=== PATIENT | male | born 1990 | race Caucasian/White ===

== ENCOUNTER 2023-08-17 15:23 | Emergency (ER) | payer OTHER, SELFPAY ==
[2023-08-17 15:26] VITALS: BP 166/81; BMI 35.9
[2023-08-17 15:27] VITALS: BP 166/81
--- NOTE | 2023-08-17 15:27 | ED.GENMED ---
History of Present Illness
General
Chief Complaint: Weakness
Source: patient and ambulance crew
Exam Limitations: none
Time Seen by Provider: 08/17/23 15:26
History of Present Illness
History of Present Illness:
See MDM
Past History
Past History
ED Past Medical History: Psychiatric (Anxiety and depression.)
ED Past Surgical History: Other (Noncontributory)
Patient has exhibited threatening behavior?: No
PSI?: No
Social History
Tobacco: Non-smoker
Alcohol: Occasional
Drug: None
Personal: Single
Living: with family
Employment: Not employed
Family History
Family History: Other (Noncontributory)
Phy Exam
Physical Exam
Physical Exam:
See MDM
Course
Orders/Labs/Results
Orders:
Orders
08/17/23 15:26
EKG [Electrocardiogram (*1)] Urgent
Reason for Study: Fatigue / Weakness
EKG- Treatment ONCE
0.9% Sodium Chloride 1000 ml [Nss] 1,000 ml IV BOLUS
Morphine Sulfate 4 mg IV NOW STA
08/17/23 15:27
0.9% Sodium Chloride 1000 ml [Nss] 1,000 ml IV BOLUS
08/17/23 15:32
CBC/With Diff [Complete Blood Count/With Diff] Urgent
CMP [Comprehensive Metabolic Panel] Urgent
CPK [Creatine Phosphokinase] Urgent
Urinalysis Reflex To Culture Urgent
Date Specimen was Collected: 08/17/23
Time Specimen was Collected: 15:25
08/17/23 16:10
Ketorolac [Toradol] 30 mg IV NOW STA
08/17/23 16:44
CT Head W/o Iv Contrast Urgent
Comment:
Reason For Exam: Persistent headache
08/17/23 18:06
Butalb/Acetaminophen/Caffeine [Fioricet] 1 tab PO NOW STA
Abnormal Lab Results
08/17/23
15:32
Neutrophils % 76.5 H %
(42.2-75.2)
Lymphocytes % 18.8 L %
(20.5-51.1)
Glucose 136 H mg/dl
(70-99)
Creatine Kinase 412 H U/L
(55-170)
08/17/23 15:32
08/17/23 15:32
Vital Signs
Initial and Last Documented VS:
Initial Vital Signs
Temp Pulse Resp BP Pulse Ox
98 F 119 20 166/81 100
08/17/23 15:26 08/17/23 15:26 08/17/23 15:26 08/17/23 15:26 08/17/23 15:26
Last Documented Vital Signs
Temp Pulse Resp BP Pulse Ox
98 F 83 25 141/62 94
08/17/23 15:26 08/17/23 19:30 08/17/23 19:30 08/17/23 19:00 08/17/23 19:30
MDM/Problems Addressed
Differential Diagnosis Includes:
HPI and MDM Narrative:
33-year-old male presenting with generalized muscle aches and weakness. Patient has been unable to urinate over the past several days. Patient has been exercising more vigorously. Patient denies prior history of rhabdomyolysis.
On exam, patient has dry mucous membranes. He is somewhat uncomfortable. Abdomen soft and nontender. No leg edema
Physical exam
General: Mildly uncomfortable
HEENT: protecting airway. Dry mucous membranes
Neck: appears supple
CV: No evidence of cyanosis. Regular rate and rhythm
Resp: No accessory muscle use
Abd: Non-distended
Extremities: No deformities
Neuro: alert
Psych: Irritable
Skin: Intact
Problems Addressed including Acute and Chronic Conditions affecting care:
1. Dehydration
Acuity: acute
Prognosis: unstable
Details: Will start IV fluids
2. Myalgias
Acuity: acute
Prognosis: unstable
Details: Likely in the setting of rhabdomyolysis. IV fluids continued
Updates
Mild elevation of CPK. Patient feeling better after fluids. Patient still has a headache. CT head obtained which is negative. Patient given Fioricet which is helping. Discussed return
Differential Diagnosis (but not limited to): Rhabdomyolysis, myalgia, dehydration
Testing considered: Troponin
Drug therapy (if applicable): OTC meds, please see d/c instruction regarding Rx drugs
Amount and/or Complexity of Data Reviewed
Clinical info obtained from: Patient
External data reviewed: N/A
Labs I independently reviewed (but not limited to): Mild CPK elevation
Radiology: The CT scan was personally and independently reviewed. In addition, official CT report reviewed.
Pulse Ox: not hypoxic
EKG independently reviewed: N/A
Stained Glass Glazier Helper: N/A
Critical Care: N/A
Risk of Complication:
Social Determinants of health: Good social support
Discussed with other providers: N/A
Escalation of Care includes Admit/Obs: After being observed in the Emergency Department, pt stable for discharge.
Occasional wrong word or 'sound a like' substitutions may have occurred due to the inherent limitations of voice recognition software. Read the chart carefully and recognize, using context, where substitutions have occurred.
*Critical Care Note
Total Time (30-74mins, 75-104mins- exclusive of procedures): Not Applicable
ED Attending Note
-
Portions of this chart may have been created with voice recognition software.� Occasional wrong word or��sound alike� substitutions may have occurred due to the inherent limitations of voice recognition software.
Discharge Plan
Departure
Patient Disposition: Home (Routine Discharge)
Date of Disposition: 08/17/23
Time of Disposition: 19:44
Patient with high blood pressure during this ER visit?: Yes
Discharge Problem:
Acute dehydration, Migraine, Myalgia
Instructions: Migraines (DC), Rhabdomyolysis (DC), BLOOD PRESSURE
Prescriptions:
New
hewcphhgtg-ozkmvpohzssdf-wmrb [Fioricet] 50-300-40 mg capsule
1 cap PO Q8H PRN (Reason: Headache) Qty: 14 0RF
No Action
dextroamphetamine-amphetamine [Adderall] 10 mg Tablet
10 mg PO HS
Patient Comments:
at 1300
clonazepam 0.5 mg Tablet
0.5 mg PO BID
dextroamphetamine-amphetamine [Adderall XR] 20 mg Capsule,Extended Release 24hr
20 mg PO DAILY
paroxetine HCl [Paxil] 40 mg Tablet
40 mg PO DAILY
ziprasidone HCl [Geodon] 60 mg Capsule
60 mg PO HS
hydroxyzine HCl 25 MG tablet
50 mg PO TID PRN (Reason: anxiety)
lorazepam [Ativan] 1 mg tablet
1 mg PO BID PRN (Reason: anxiety) Qty: 7 0RF
lorazepam [Ativan] 0.5 mg tablet
0.5 mg PO DAILY PRN (Reason: anxiety) Qty: 10 0RF
Referrals:
Marilyn Chaney DO [Family Provider] -
Activity Restrictions/Additional Instructions:
Please return for any worsening symptoms.
You may return at any time if you have further concerns.
Please follow up with your doctor at the first available appointment, preferably this week.
Thank you for choosing [facility].
Interventions
Interventions:
*Risk Screen - Suicide Last Done: 08/17/23 15:27
*General Assessment Last Done: 08/17/23 15:27
ED- Fall Risk Assessment Last Done: 08/17/23 15:37
ED- Cardiac Assessment Last Done: 08/17/23 15:37
ED- Neurological Assessment Last Done: 08/17/23 15:37
ED- Pulmonary Assessment Last Done: 08/17/23 15:37
[2023-08-17] MEDS: NSS 1000 IV ×2 (15:30)
[2023-08-17] MEDS: MORPHINE SULFATE 4 MG IV (15:30)
[2023-08-17 15:42] LABS: % Basophils 0.3 % (0-2); % Eosinophils 0.1 % (0-6); % Immature Granulocytes 0.1 % (0-0.5); % Lymphocytes 18.8 % (20.5-51.1); % Monocytes 4.2 % (1.7-9.3); % Neutrophils 76.5 % (42.2-75.2); Absolute Lymphocytes 1.3 10^3/uL (1.2-3.4); Absolute Monocytes 0.3 10^3/uL (0.1-0.6); Absolute Neutrophils 5.3 10^3/uL (1.4-6.5); Hematocrit 42.3 % (39.0-52.0); Hemoglobin 15.1 g/dL (13.0-18.0); Mean Corp Hgb Conc. 35.7 g/dL (33.0-37.0); Mean Corpuscular Hgb 30.3 pg (27.0-31.0); Mean Corpuscular Volume 84.8 fL (80.0-94.0); Mean Platelet Volume 10.4 fL (7.4-10.4); Nucleated Red Blood Cells % 0 % (-); Platelet Count 187 10^3/uL (130-400); Red Blood Cell Count 4.99 10^6/uL (4.70-6.10); Red Cell Dist. Width 12.3 % (11.5-14.5)
[2023-08-17 15:55] LABS: ALT (SGPT) 35 U/L (0-50); AST (SGOT) 48 U/L (17-59); Albumin 4.8 g/dl (3.5-5.0); Alkaline Phosphatase 53 U/L (38-126); Blood Urea Nitrogen 18 mg/dl (9-20); Calcium 9.4 mg/dl (8.4-10.2); Carbon Dioxide 23 mmol/L (22-30); Chloride 103 mmol/L (98-107); Creatine Phosphokinase 412 U/L (55-170); Estimated Creatinine Clearance 93 ml/min; Glucose 136 mg/dl (70-99); Potassium 3.6 mmol/L (3.5-5.1); Sodium 136 mmol/L (135-145); Total Bilirubin 0.7 mg/dl (0.2-1.3); Total Protein 7.2 g/dl (6.3-8.2); eGFR > 60.00
[2023-08-17 16:00] VITALS: BP 152/72
[2023-08-17] MEDS: TORADOL 30 MG IV (16:14)
[2023-08-17 17:00] VITALS: BP 145/75
[2023-08-17 18:00] VITALS: BP 139/70
[2023-08-17 18:15] LABS: Urine Albumin Negative (Neg - Trace); Urine Bilirubin Negative (Negative); Urine Character Clear (Clear); Urine Color Yellow; Urine Glucose Negative (Negative); Urine Ketone Negative (Negative); Urine Leukocyte Negative (Negative); Urine Nitrite Negative (Negative); Urine Occult Blood Negative (Negative); Urine Specific Gravity 1.015 (<1.030); Urine Urobilinogen Negative (Neg - 1+)
[2023-08-17] MEDS: FIORICET 1 TAB PO (18:18)
[2023-08-17 19:00] VITALS: BP 141/62
== END 2023-08-17 20:15 | disposition home or self-care (01) ==
LOC: EMR 15:23
PROVIDERS: EMERGENCY PHYSICIAN Student in an Organized Health Care Education/Training Program; FAMILY PHYSICIAN Internal Medicine
DX: E86.0 Dehydration (principal); M79.10 Myalgia, unspecified site; G43.909 Migraine, unspecified, not intractable, without status migrainosus
CPT/HCPCS: 99284; 96374; 96375; 96361; 70450; 80053; 81003; 82550; 85025; 93005

== ENCOUNTER 2023-08-21 20:24 | Emergency (ER) | payer OTHER, SELFPAY ==
[2023-08-21 20:34] VITALS: BP 131/82
--- NOTE | 2023-08-21 21:34 | ED.GENMED ---
History of Present Illness
General
Chief Complaint: Male Genito-Urinary Symptoms
Time Seen by Provider: 08/21/23 20:32
Travel History
Have you had any contact with someone who has COVID-19?: No
Do you have any symptoms of coronavirus? Fever > 100 degrees, chills, cough, shortness of breath, sore throat, loss of taste or smell, muscle aches, or headache?: No
History of Present Illness
History of Present Illness:
33-year-old male with history of anxiety presents to the emergency department for evaluation of low back pain that occurred while exercising today. He was seen in this emergency department several days ago and found to have an elevated CPK on the
basis of excessive exertion, he is concerned that he overdid it again today. He currently feels well. Apparently was quite anxious and agitated for EMS and thus given IV midazolam and the patient now feels essentially resolved symptom soliz.
Denies any dark urine or abdominal pain.
Past History
Past History
ED Past Medical History: Psychiatric (Anxiety and depression.)
ED Past Surgical History: Other (Noncontributory)
Patient has exhibited threatening behavior?: No
PSI?: No
Social History
Tobacco: Non-smoker
Alcohol: Occasional
Drug: None
Personal: Single
Living: with family
Employment: Not employed
Family History
Family History: Other (Noncontributory)
Review of Systems
Review of Systems
Allergies reviewed?: Yes
All Other Systems: ROS reviewed and negative except as documented in HPI and ROS
Phy Exam
Physical Exam
Physical Exam:
GEN: Well appearing, NAD, WDWN
Eyes: PERRLA, EOMs intact, no scleral icterus
HENT: NCAT, oral mucosa moist
Lungs: CTAB, no wheezes, rales, rhonchi, normal chest wall excursion
Cardiac: RRR, no M/R/G, no peripheral edema. Radial pulses 2+ bilat
Abdomen: S, NT, ND, NABS, no masses or hepatosplenomegaly
Neuro: AO x 3
MSK: No gross deformity or ecchymosis. No edema. No digital clubbing
Skin: No rashes, petechiae. Normal color, no pallor or jaundice.
Psych: Calm, cooperative, proper hygiene
Course
Orders/Labs/Results
Orders:
Orders
08/21/23 21:39
Basic Metabolic Panel Urgent
CPK [Creatine Phosphokinase] Urgent
Complete Blood Count/No Diff Urgent
Urinalysis Reflex To Culture Urgent
Date Specimen was Collected: 08/21/23
Time Specimen was Collected: 21:37
Urine Microscopic Reflex Cult Urgent
Abnormal Lab Results
08/21/23
21:39
Sodium 134 L mmol/L
(135-145)
Creatine Kinase 336 H U/L
(55-170)
Leukocyte Esterase Rfl Trace A
(Negative)
Urine Bacteria (Reflex) Few A
(Negative)
08/21/23 21:39
08/21/23 21:39
Vital Signs
Initial and Last Documented VS:
Initial Vital Signs
Temp Pulse Resp BP Pulse Ox
97.9 F 82 18 131/82 100
08/21/23 20:34 08/21/23 20:34 08/21/23 20:34 08/21/23 20:34 08/21/23 20:34
Last Documented Vital Signs
Temp Pulse Resp BP Pulse Ox
97.9 F 78 32 123/65 97
08/21/23 20:34 08/21/23 22:00 08/21/23 22:00 08/21/23 22:00 08/21/23 22:00
MDM/Problems Addressed
MDM/Problems Addressed:
Patient's labs are reassuring, elevated CK is not at the criteria for rhabdo, patient did receive 1 L IV fluids prehospital that was continued in the ER. Patient is reassured that his labs are normal, encouraged avoidance of excessive exertion for
the next several days
*Critical Care Note
Total Time (30-74mins, 75-104mins- exclusive of procedures): Not Applicable
ED Attending Note
-
Portions of this chart may have been created with voice recognition software.� Occasional wrong word or��sound alike� substitutions may have occurred due to the inherent limitations of voice recognition software.
Discharge Plan
Departure
Patient Disposition: Home (Routine Discharge)
Date of Disposition: 08/21/23
Time of Disposition: 22:24
Patient with high blood pressure during this ER visit?: No
Discharge Problem:
Elevated CK, Low back pain
Instructions: Back Pain
Prescriptions:
No Action
dextroamphetamine-amphetamine [Adderall] 10 mg Tablet
10 mg PO HS
Patient Comments:
at 1300
clonazepam 0.5 mg Tablet
0.5 mg PO BID
dextroamphetamine-amphetamine [Adderall XR] 20 mg Capsule,Extended Release 24hr
20 mg PO DAILY
paroxetine HCl [Paxil] 40 mg Tablet
40 mg PO DAILY
ziprasidone HCl [Geodon] 60 mg Capsule
60 mg PO HS
hydroxyzine HCl 25 MG tablet
50 mg PO TID PRN (Reason: anxiety)
lorazepam [Ativan] 1 mg tablet
1 mg PO BID PRN (Reason: anxiety) Qty: 7 0RF
lorazepam [Ativan] 0.5 mg tablet
0.5 mg PO DAILY PRN (Reason: anxiety) Qty: 10 0RF
kfbcjnuvbd-ungdskcufpgza-tgov [Fioricet] 50-300-40 mg capsule
1 cap PO Q8H PRN (Reason: Headache) Qty: 14 0RF
Referrals:
UNKNOWN - PT NOT,INTERVIEWE [Unknown Provider] -
Activity Restrictions/Additional Instructions:
No exertion for 3-5 days
Interventions
Interventions:
*Risk Screen - Suicide Last Done: 08/21/23 20:34
*General Assessment Last Done: 08/21/23 20:34
*Neglect/Abuse Screening Last Done: 08/21/23 20:34
ED- Fall Risk Assessment Last Done: 08/21/23 22:41
*ED COVID-19 Vaccine History Last Done: 08/21/23 22:41
*Nursing Disposition Last Done: 08/21/23 22:41
ED-Male Genitourinary Assessment Last Done: 08/21/23 20:34
Discharge Date and Time
Discharge Date/Time: 08/21/23 23:14
[2023-08-21 21:51] LABS: Hematocrit 40.1 % (39.0-52.0); Hemoglobin 14.8 g/dL (13.0-18.0); Mean Corp Hgb Conc. 36.9 g/dL (33.0-37.0); Mean Corpuscular Volume 81.2 fL (80.0-94.0); Mean Platelet Volume 10.1 fL (7.4-10.4); Platelet Count 185 10^3/uL (130-400); Red Blood Cell Count 4.94 10^6/uL (4.70-6.10); Red Cell Dist. Width 12.3 % (11.5-14.5); White Blood Cell Count 9.7 10^3/uL (4.8-10.8)
[2023-08-21 21:52] LABS: Urine Albumin Negative (Neg - Trace); Urine Bilirubin Negative (Negative); Urine Character Clear (Clear); Urine Color Straw; Urine Glucose Negative (Negative); Urine Ketone Negative (Negative); Urine Leukocyte Trace (Negative); Urine Nitrite Negative (Negative); Urine Occult Blood Negative (Negative); Urine Specific Gravity 1.005 (<1.030); Urine Urobilinogen Negative (Neg - 1+)
[2023-08-21 21:57] VITALS: BMI 32.0
[2023-08-21 21:58] LABS: Urine Bacteria Few (Negative); Urine Red Blood Cell 0-2 /HPF (0-2); Urine White Cell 0-2 /HPF (0-5)
[2023-08-21 22:00] VITALS: BP 123/65
[2023-08-21 22:13] LABS: Blood Urea Nitrogen 16 mg/dl (9-20); Calcium 9.7 mg/dl (8.4-10.2); Carbon Dioxide 30 mmol/L (22-30); Chloride 100 mmol/L (98-107); Creatine Phosphokinase 336 U/L (55-170); Estimated Creatinine Clearance 88 ml/min; Glucose 92 mg/dl (70-99); Sodium 134 mmol/L (135-145); eGFR > 60.00
== END 2023-08-21 23:14 | disposition home or self-care (01) ==
LOC: EMR 20:24
PROVIDERS: Physician Assistant; EMERGENCY PHYSICIAN Emergency Medicine; FAMILY PHYSICIAN Internal Medicine
DX: M54.50 Low back pain, unspecified (principal); R74.8 Abnormal levels of other serum enzymes; F41.9 Anxiety disorder, unspecified
CPT/HCPCS: 99283; 80048; 81003; 81015; 82550; 85027

== ENCOUNTER 2023-08-24 15:24 | Emergency (ER) | payer OTHER, SELFPAY ==
[2023-08-24 15:26] VITALS: BP 122/73
[2023-08-24 15:51] LABS: % Basophils 0.3 % (0-2); % Immature Granulocytes 0.4 % (0-0.5); % Lymphocytes 20.1 % (20.5-51.1); % Monocytes 4.4 % (1.7-9.3); % Neutrophils 74.8 % (42.2-75.2); Absolute Lymphocytes 1.4 10^3/uL (1.2-3.4); Absolute Monocytes 0.3 10^3/uL (0.1-0.6); Absolute Neutrophils 5.1 10^3/uL (1.4-6.5); Hemoglobin 15.7 g/dL (13.0-18.0); Mean Corp Hgb Conc. 35.7 g/dL (33.0-37.0); Mean Corpuscular Hgb 30.1 pg (27.0-31.0); Mean Corpuscular Volume 84.5 fL (80.0-94.0); Mean Platelet Volume 10.1 fL (7.4-10.4); Nucleated Red Blood Cells % 0 % (-); Platelet Count 208 10^3/uL (130-400); Red Blood Cell Count 5.21 10^6/uL (4.70-6.10); Red Cell Dist. Width 12.4 % (11.5-14.5); White Blood Cell Count 6.9 10^3/uL (4.8-10.8)
[2023-08-24 16:05] LABS: ALT (SGPT) 37 U/L (0-50); AST (SGOT) 40 U/L (17-59); Albumin 5.2 g/dl (3.5-5.0); Alkaline Phosphatase 48 U/L (38-126); Blood Urea Nitrogen 15 mg/dl (9-20); Calcium 10.1 mg/dl (8.4-10.2); Carbon Dioxide 29 mmol/L (22-30); Chloride 99 mmol/L (98-107); Creatine Phosphokinase 171 U/L (55-170); Glucose 107 mg/dl (70-99); Potassium 4.3 mmol/L (3.5-5.1); Sodium 135 mmol/L (135-145); Total Bilirubin 0.6 mg/dl (0.2-1.3); Total Protein 7.8 g/dl (6.3-8.2); eGFR > 60.00
--- NOTE | 2023-08-24 16:42 | ED.GENMED ---
History of Present Illness
General
Chief Complaint: Musculo-Skeletal Complaint
Source: patient
Exam Limitations: none
Time Seen by Provider: 08/24/23 16:08
Nursing documentation reviewed up to this point in time: agreed with
Travel History
Have you had any contact with someone who has COVID-19?: No
Do you have any symptoms of coronavirus? Fever > 100 degrees, chills, cough, shortness of breath, sore throat, loss of taste or smell, muscle aches, or headache?: No
History of Present Illness
History of Present Illness:
This is a 33 y/o male with a PMH of anxiety, depression, ADHD, who presents to the ER today with concerns of anxiety and a sensation of feeling 'off' for the past 2 weeks. Patient states that he has a hx of anxiety and was struggling with panic
attacks recently when today he had a panic attack today that became so severe and uncomfortable that he had to call EMS. He reports that he was experiencing shortness of breath and palpitations which is typical with his panic attacks, along with a
sense of impending doom and increasing anxiety. Patient also states that he was having an out of body experience which is not typical of his panic attacks. Patient states that when he arrived to the ER, his panic attack resolved on its own. Patient
states that he did not receive any medications via EMS. Patient tried taking his hydroxyzine at home which did not help. Patient states that physical exercise significantly improves his anxiety but he has stopped completely due to concerns of weight
training induced rhabdomyolysis. Of note, patient recently stopped his Abilify due to high cholesterol. Patient still has some anxiety currently but denies chest pain, panic symptoms, shortness of breath, palpitations, fevers or chills, visual
changes, epigastric pain, syncopal episodes. Patient also admits to burning with urination. He denies flank pain, hematuria, chance of STDs/STIs. Denies penial drainage/swelling/pain/trauma.
Past History
Past History
ED Past Medical History: Psychiatric (Anxiety and depression.)
ED Past Surgical History: Other (Noncontributory)
Patient has exhibited threatening behavior?: No
PSI?: No
Social History
Tobacco: Non-smoker
Alcohol: Occasional
Drug: None
Personal: Single
Living: with family
Employment: Not employed
Family History
Family History: Other (Noncontributory)
Review of Systems
Review of Systems
All Other Systems: ROS reviewed and negative except as documented in HPI and ROS
Phy Exam
Physical Exam
Physical Exam:
Vitals: vital signs are stable
General: patient is well appearing and in no acute distress
Skin: warm and dry, no rashes or lesions
Cardiac: regular rate and rhythm, no murmurs
Pulm: normal respiratory effort, lung sounds equal on both sides, no wheezes, rales, or rhonchi
Abdomen: No tenderness to palpation, to CVA tenderness
Neuro: AAOx3, CN II-XII intaxt.
Psychiatric: anxious affect. speech normal. good eye contact. no suicidal/homicidal thoughts.
Course
Orders/Labs/Results
Orders:
Orders
08/24/23 15:42
Complete Blood Count/With Diff Urgent
Comprehensive Metabolic Panel Urgent
Creatine Phosphokinase Urgent
08/24/23 16:39
Urinalysis Reflex To Culture Urgent
Date Specimen was Collected: 08/24/23
Time Specimen was Collected: 16:38
Abnormal Lab Results
08/24/23
15:42
Lymphocytes % 20.1 L %
(20.5-51.1)
Glucose 107 H mg/dl
(70-99)
Creatine Kinase 171 H D U/L
(55-170)
Albumin 5.2 H g/dl
(3.5-5.0)
08/24/23 15:42
08/24/23 15:42
Vital Signs
Initial and Last Documented VS:
Initial Vital Signs
Temp Pulse Resp BP Pulse Ox
97.4 F 86 18 122/73 100
08/24/23 15:26 08/24/23 15:26 08/24/23 15:26 08/24/23 15:26 08/24/23 15:26
Last Documented Vital Signs
Temp Pulse Resp BP Pulse Ox
97.4 F 86 18 122/73 100
08/24/23 15:26 08/24/23 15:26 08/24/23 15:26 08/24/23 15:26 08/24/23 15:26
MDM/Problems Addressed
Differential Diagnosis Includes:
ddx include panic attack, panic disorder, generalized anxiety disorder, Abilify discontinuation syndrome, marijuana use, caffeine use,
MDM/Problems Addressed:
anxiety
dysuria
Chronic conditions affecting care: Psychiatric illness
Acute Exacerbation and/or Progression of Chronic Illness: Psychiatric illness
*Pulse Oximetry
Patient hypoxic: no
*Critical Care Note
Total Time (30-74mins, 75-104mins- exclusive of procedures): Not Applicable
Data Reviewed
Review of Other/Old Records Reveals: Records (reviewed ER physician documentation from 08/21/23, 08/17/23, 06/01/23, 01/09/23, 03/17/22--patient has various visits for same complaint) and Discharge Summary (no recent hospitalizations)
Source: patient and records
Prescriptions/Medications Considered But Not Given:
considered short course of benzothiazepines however patient's panic attack has resolved, patient follows with a psychiatrist who he last saw 2 weeks ago, patient previously on chronic benzos, and patient has follow up with therapist tomorrow
Further Testing Considered But Not Given:
considered EKG however patient has no chest pain and on exam has regular rate and rhythm, no murmurs
Patient Management
Social determinants of health affecting care: Strong social support
Discussion with other providers: Other (reviewed case with Dr. Alan ER attending)
Escalation/DeEscalation of care consider admission/obs:
anxiety: 33 y/o male with hx of anxiety, ADHD, depression presenting today following a panic attack. patient tried home hydroxyzine which did not help, got so bad that he had to call EMS. panic attack resolved upon presentation to the ER. Patient
concerned about possible rhabdo diagnosis. Patient was seen on 08/17/2023 here for elevated CPK following exertional exercise, patient was rehydrated and sent home, not true rhabdo diagnosis, no kidney injury at the time. Patient today has mildly
elevated CPK which is significantly reduced from previous levels, no kidney injury today. Patient states that his daily exercise is his primary form of anxiety relief. I suspect patient's recent increase in panic attacks is a result of his decrease
in exercise as well as abrupt discontinuation of abilify. Patient does have therapy appointment scheduled for tomorrow. I advised patient tomorrow to call his psychiatric provider for an appointment for possible medication adjustment. We discussed
coping mechanisms. Discussed that it is okay to return to light exercise and to return to full exercise gradually over the coming weeks. Patient requesting home course of benzos, considered possibility however patient has had issues with benzo
dependence with his anxiety in the past. Patient stable for discharge.
urinary symptoms: patient also complains of mild dysuria, patient has no flank pain, no abdominal pain, no fevers or chills. Urinalysis negative for infection. Advised patient to follow up with his pcp should his symptoms worsen
ED Attending Note
-
Portions of this chart may have been created with voice recognition software.� Occasional wrong word or��sound alike� substitutions may have occurred due to the inherent limitations of voice recognition software.
Discharge Plan
Departure
Patient Disposition: Home (Routine Discharge)
Date of Disposition: 08/24/23
Time of Disposition: 18:12
Patient with high blood pressure during this ER visit?: Yes
Condition: Good
Discharge Problem:
Anxiety
Instructions: Anxiety, Adult (DC)
Prescriptions:
No Action
dextroamphetamine-amphetamine [Adderall] 10 mg Tablet
10 mg PO HS
Patient Comments:
at 1300
clonazepam 0.5 mg Tablet
0.5 mg PO BID
dextroamphetamine-amphetamine [Adderall XR] 20 mg Capsule,Extended Release 24hr
20 mg PO DAILY
paroxetine HCl [Paxil] 40 mg Tablet
40 mg PO DAILY
ziprasidone HCl [Geodon] 60 mg Capsule
60 mg PO HS
hydroxyzine HCl 25 MG tablet
50 mg PO TID PRN (Reason: anxiety)
lorazepam [Ativan] 1 mg tablet
1 mg PO BID PRN (Reason: anxiety) Qty: 7 0RF
lorazepam [Ativan] 0.5 mg tablet
0.5 mg PO DAILY PRN (Reason: anxiety) Qty: 10 0RF
xwiasstwac-iogdphfstxbhw-nxck [Fioricet] 50-300-40 mg capsule
1 cap PO Q8H PRN (Reason: Headache) Qty: 14 0RF
Referrals:
Marilyn Chaney DO [Family Provider] -
Activity Restrictions/Additional Instructions:
Please follow up with your psychiatrist. Please call the office tomorrow to make an appointment for follow up.
Please follow up with your primary care provider.
Interventions
Interventions:
*Risk Screen - Suicide Last Done: 08/24/23 15:26
*General Assessment Last Done: 08/24/23 15:26
*Neglect/Abuse Screening Last Done: 08/24/23 15:26
ED- Fall Risk Assessment Last Done: 08/24/23 18:28
*ED COVID-19 Vaccine History Last Done: 08/24/23 18:28
*Nursing Disposition Last Done: 08/24/23 18:28
ED-Musculoskeletal Assessment Last Done: 08/24/23 18:28
Discharge Date and Time
Discharge Date/Time: 08/24/23 18:28
[2023-08-24 16:48] LABS: Urine Albumin Negative (Neg - Trace); Urine Bilirubin Negative (Negative); Urine Character Clear (Clear); Urine Color Straw; Urine Glucose Negative (Negative); Urine Ketone Negative (Negative); Urine Leukocyte Negative (Negative); Urine Nitrite Negative (Negative); Urine Occult Blood Negative (Negative); Urine Urobilinogen Negative (Neg - 1+)
== END 2023-08-24 18:28 | disposition home or self-care (01) ==
LOC: EMR 15:24
PROVIDERS: Physician Assistant; EMERGENCY PHYSICIAN Emergency Medicine; FAMILY PHYSICIAN Internal Medicine
DX: F41.9 Anxiety disorder, unspecified (principal); F32.A Depression, unspecified; E78.00 Pure hypercholesterolemia, unspecified; F90.9 Attention-deficit hyperactivity disorder, unspecified type
CPT/HCPCS: 99283; 80053; 81003; 82550; 85025

== ENCOUNTER 2023-08-26 15:13 | Emergency (ER) | payer OTHER, SELFPAY ==
[2023-08-26 15:14] VITALS: BP 174/83
--- NOTE | 2023-08-26 15:25 | ED TECH ---
pt arrived to triage with amblance crew and police aide. Pt hunched over on stretcher, yelled at nursing at ems stating he was in pain and the was 'bullshit' in triage. Pt ambulated with steady gait to triage BR where pt successfully urinated for
close to a minute straight with a steady stream. Nurse and PCT at pt side where he was triaged and put into WR, stating 'this is bullshit, im in pain and now you want to give me COVID.' Security made aware while pt is waiting in WR.
--- NOTE | 2023-08-26 16:48 | ED.GENMED ---
History of Present Illness
General
Chief Complaint: Male Genito-Urinary Symptoms
Source: patient
Time Seen by Provider: 08/26/23 15:59
Travel History
Have you had any contact with someone who has COVID-19?: No
Do you have any symptoms of coronavirus? Fever > 100 degrees, chills, cough, shortness of breath, sore throat, loss of taste or smell, muscle aches, or headache?: No
History of Present Illness
History of Present Illness:
33-year-old male with severe anxiety. States that he started to develop severe anxiety just prior to presentation and called EMS. He says that 'on the way here', he was unable to urinate. However, since arrival, he just urinated and feels that he
empties his bladder fully. He describes anxiety of feeling like he was 'losing my mind', associated with crying and diffuse body pain, typical of an anxiety attack for him. He declines to see crisis here, and denies SI or HI. He just saw his
therapist yesterday and has an appoint with a psychiatrist tomorrow to restart/reinitiate Abilify which he thinks will help him. He denies chest pain, shortness of breath, abdominal pain, nausea, vomiting, headache, dizziness, fever, chills, or
other complaints.
Past History
Past History
ED Past Medical History: Psychiatric (Anxiety and depression.)
ED Past Surgical History: Other (Noncontributory)
Patient has exhibited threatening behavior?: No
PSI?: No
Social History
Tobacco: Non-smoker
Alcohol: Occasional
Drug: None
Personal: Single
Living: with family
Employment: Not employed
Family History
Family History: Other (Noncontributory)
Phy Exam
Physical Exam
Physical Exam:
GENERAL: Alert , in no apparent distress
EYE: pupils equal and reactive
NECK: Supple, no significant adenopathy.
ENT: o/p clr, mmm.
CARDIAC: Regular rate and rhythm .
LUNGS: Clear breath sounds bilaterally, no acute respiratory distress, no wheezes/rales/rhonchi
ABDOMEN: Soft, without focal tenderness, no r/g, no cvat
NEUROLOGICAL: Alert and oriented, no focal neuro deficits
SKIN: Warm and dry, skin intact.
MUSCULOSKELETAL: No edema, well perfused.
PSYCH: Pleasant, cooperative, obviously anxious, denies SI or HI
Course
Orders/Labs/Results
Orders:
Orders
08/26/23 16:47
Bladder Scan- Treatment ONCE
Vital Signs
Initial and Last Documented VS:
Initial Vital Signs
Temp Pulse Resp BP Pulse Ox
98.6 F 112 24 174/83 99
08/26/23 15:14 08/26/23 15:14 08/26/23 15:14 08/26/23 15:14 08/26/23 15:14
Last Documented Vital Signs
Temp Pulse Resp BP Pulse Ox
98.6 F 112 24 174/83 99
08/26/23 15:14 08/26/23 15:14 08/26/23 15:14 08/26/23 15:14 08/26/23 15:14
*Critical Care Note
Total Time (30-74mins, 75-104mins- exclusive of procedures): Not Applicable
Update Note
Update Note:
Patient presents to the Emergency Department with urinary retention and anxiety
Number and Complexity of Problems Addressed at the Encounter
� Chronic conditions affecting care:
� Acute Exacerbation and/or Progression of Chronic Illness:
� Differential Diagnosis includes: But not limited to medication effect, UTI, etc.
Amount and/or Complexity of Data to be Reviewed and Analyzed
� I performed an independent evaluation of and my interpretation is:
EKG:
CT:
Xrays:
Laboratory Studies:
Other:
� Review of other/old records reveals:
� Clinical information was obtained by an independent historian:
� Prescriptions/Medications Considered but not given:
� Further testing considered but not performed:
Risk of Complications and/or Morbidity or Mortality of Patient Management
� Social determinants of health affecting care:
� Discussion with other providers (PCP, Hospitalists, Consultants, etc):
� Escalation of care including admission/observation vs risk of discharge considered: Patient is clinically stable. We will do bladder scan to make sure he is not retaining. He has an appointment tomorrow to restart his Abilify
with his psychiatrist. He denies SI or HI and declines crisis services here. He contracts for safety. He is requesting a prescription for a rescue medication for anxiety such as Ativan. I will write him for just a few tablets.
ED Attending Note
-
Portions of this chart may have been created with voice recognition software.� Occasional wrong word or��sound alike� substitutions may have occurred due to the inherent limitations of voice recognition software.
Discharge Plan
Departure
Patient Disposition: Home (Routine Discharge)
Date of Disposition: 08/26/23
Time of Disposition: 16:51
Patient with high blood pressure during this ER visit?: Yes
Condition: Good
Discharge Problem:
Anxiety
Instructions: Anxiety, Adult (DC), BLOOD PRESSURE
Prescriptions:
New
lorazepam [Ativan] 0.5 mg tablet
0.5 mg PO BID PRN (Reason: anxiety) Qty: 3 0RF
No Action
dextroamphetamine-amphetamine [Adderall] 10 mg Tablet
10 mg PO HS
Patient Comments:
at 1300
clonazepam 0.5 mg Tablet
0.5 mg PO BID
dextroamphetamine-amphetamine [Adderall XR] 20 mg Capsule,Extended Release 24hr
20 mg PO DAILY
paroxetine HCl [Paxil] 40 mg Tablet
40 mg PO DAILY
ziprasidone HCl [Geodon] 60 mg Capsule
60 mg PO HS
hydroxyzine HCl 25 MG tablet
50 mg PO TID PRN (Reason: anxiety)
lorazepam [Ativan] 1 mg tablet
1 mg PO BID PRN (Reason: anxiety) Qty: 7 0RF
lorazepam [Ativan] 0.5 mg tablet
0.5 mg PO DAILY PRN (Reason: anxiety) Qty: 10 0RF
xgqgqpuvbn-mrxlxlytxxasu-rhvb [Fioricet] 50-300-40 mg capsule
1 cap PO Q8H PRN (Reason: Headache) Qty: 14 0RF
Activity Restrictions/Additional Instructions:
PLEASE SEE YOUR PSYCHIATRIST SCHEDULED TOMORROW. IF YOU DEVELOP THOUGHTS OF WANTING TO HURT YOURSELF OR OTHERS, FEVER, VOMITING, DIZZINESS, DIFFICULTY URINATING, OR OTHER WORRISOME SIGNS, GO TO THE ER IMMEDIATELY!
Interventions
Interventions:
*Risk Screen - Suicide Last Done: 08/26/23 15:14
*General Assessment Last Done: 08/26/23 15:14
*Neglect/Abuse Screening Last Done: 08/26/23 15:14
ED- Fall Risk Assessment Last Done: 08/26/23 15:46
*ED COVID-19 Vaccine History Last Done: 08/26/23 15:14
*Nursing Disposition Last Done: 08/26/23 17:00
ED-Male Genitourinary Assessment Last Done: 08/26/23 15:46
Discharge Date and Time
Discharge Date/Time: 08/26/23 17:07
== END 2023-08-26 17:07 | disposition home or self-care (01) ==
LOC: EMR 15:13
PROVIDERS: EMERGENCY PHYSICIAN Emergency Medicine; FAMILY PHYSICIAN Internal Medicine
DX: F41.9 Anxiety disorder, unspecified (principal); F32.A Depression, unspecified
CPT/HCPCS: 99282

== ENCOUNTER 2023-09-10 11:29 | Emergency (ER) | payer OTHER, SELFPAY ==
[2023-09-10 11:31] VITALS: BP 140/77
[2023-09-10 13:46] LABS: % Basophils 0.3 % (0-2); % Immature Granulocytes 0.1 % (0-0.5); % Lymphocytes 16.8 % (20.5-51.1); % Monocytes 3.7 % (1.7-9.3); % Neutrophils 79.1 % (42.2-75.2); Absolute Lymphocytes 1.2 10^3/uL (1.2-3.4); Absolute Monocytes 0.3 10^3/uL (0.1-0.6); Absolute Neutrophils 5.4 10^3/uL (1.4-6.5); Hematocrit 40.4 % (39.0-52.0); Hemoglobin 14.6 g/dL (13.0-18.0); Mean Corp Hgb Conc. 36.1 g/dL (33.0-37.0); Mean Corpuscular Hgb 29.6 pg (27.0-31.0); Mean Corpuscular Volume 81.8 fL (80.0-94.0); Mean Platelet Volume 9.9 fL (7.4-10.4); Nucleated Red Blood Cells % 0 % (-); Platelet Count 201 10^3/uL (130-400); Red Blood Cell Count 4.94 10^6/uL (4.70-6.10); Red Cell Dist. Width 12.5 % (11.5-14.5); White Blood Cell Count 6.8 10^3/uL (4.8-10.8)
[2023-09-10] MEDS: ATIVAN 1 MG IV (13:46)
--- NOTE | 2023-09-10 13:51 | ED.GENMED ---
History of Present Illness
General
Chief Complaint: Anxiety
Source: patient
Exam Limitations: none
Time Seen by Provider: 09/10/23 12:40
Nursing documentation reviewed up to this point in time: agreed with
Travel History
Have you had any contact with someone who has COVID-19?: No
Do you have any symptoms of coronavirus? Fever > 100 degrees, chills, cough, shortness of breath, sore throat, loss of taste or smell, muscle aches, or headache?: No
History of Present Illness
History of Present Illness:
The patient is a 33-year-old man who reports that he has a history of anxiety and depression. He reports that lately over the last 3 weeks, his anxiety has gotten out of control and he is having multiple panic attacks. Patient reports he is
currently having a panic attack. He describes chest pain and shortness of breath. He denies any specific social stressors. He reports that he has been in touch with [facility] about being placed in a partial program, however, they have not yet
gotten back to him. He is requesting benzos. He reports he has taken Klonopin in the past but has not been on Klonopin in years. He currently is on for Abilify, Geodon, Paxil and Adderall. He denies drugs and alcohol use. Denies suicidal and
homicidal thoughts. He reports he feels safe living at home with his parents.
Past History
Past History
ED Past Medical History: Psychiatric (Anxiety and depression.)
ED Past Surgical History: Other (Noncontributory)
Patient has exhibited threatening behavior?: No
PSI?: No
Social History
Tobacco: Non-smoker
Alcohol: Occasional
Drug: None
Personal: Single
Living: with family
Employment: Not employed
Family History
Family History: Other (Noncontributory)
Review of Systems
Review of Systems
Allergies reviewed?: Yes
All Other Systems: ROS reviewed and negative except as documented in HPI and ROS
Constitutional: Reports no symptoms
EENT: Reports no symptoms
Respiratory: Reports no symptoms
Cardiac: Reports chest pain
ABD/GI: Reports no symptoms
: Reports no symptoms
Musculoskeletal: Reports no symptoms
Skin: Reports no symptoms
Neurological: Reports no symptoms
Endocrine: Reports no symptoms
Hematologic/Lymphatic: Reports no symptoms
Psychiatric: Reports depression and anxiety
Phy Exam
Physical Exam
Physical Exam:
Physical Exam
General: Patient is hyperventilating but conversational
Neck: supple. no meningeal signs. normal psoterior pharynx
Heart: s1/s2 regular rate and rhythm, no murmur. equal radial pulses.
Lungs: no acute respiratory distress. clear bilaterally
Abdomen: normal bowel sounds. not tender. no CVAT
Neuro: alert and oriented. no focal neurological deficits
Skin: no rash
Psychiatric: well kept. interactive and cooperative
Extremities: no edema. no calf tenderness. negative homans. good distal pulses
Course
Orders/Labs/Results
Orders:
Orders
09/10/23 13:23
Lorazepam [Ativan] 1 mg IV NOW STA
09/10/23 13:24
Electrocardiogram (*1) Urgent
Reason for Study: Chest Pain
EKG- Treatment ONCE
09/10/23 13:30
Crisis Consult Urgent
Reason for Consult: acute on chronic anxiety and depression
09/10/23 13:32
Complete Blood Count/With Diff Urgent
Comprehensive Metabolic Panel Urgent
Troponin I Urgent
Abnormal Lab Results
09/10/23
13:32
Neutrophils % 79.1 H %
(42.2-75.2)
Lymphocytes % 16.8 L %
(20.5-51.1)
Glucose 106 H mg/dl
(70-99)
09/10/23 13:32
09/10/23 13:32
Vital Signs
Initial and Last Documented VS:
Initial Vital Signs
Temp Pulse Resp BP Pulse Ox
98.3 F 97 16 140/77 98
09/10/23 11:31 09/10/23 11:31 09/10/23 11:31 09/10/23 11:31 09/10/23 11:31
Last Documented Vital Signs
Temp Pulse Resp BP Pulse Ox
98.3 F 97 16 140/77 98
09/10/23 11:31 09/10/23 11:31 09/10/23 11:31 09/10/23 11:31 09/10/23 11:31
MDM/Problems Addressed
Differential Diagnosis Includes:
Acute on chronic anxiety, acute coronary syndrome, PE
MDM/Problems Addressed:
Patient presents with acute panic attack
Chronic conditions affecting care:
Anxiety, depression
Acute Exacerbation and/or Progression of Chronic Illness:
Patient likely has acute exacerbation of his chronic depression and anxiety
*Pulse Oximetry
Patient hypoxic: no
*EKG
Interpreted by ED Provider?: Yes
Interpretation: abnormal
Comparison EKG: no changes
Rate: normal
Rhythm: sinus
[place]: normal axis
Interval: normal interval
QRS Pattern: normal QRS
Ischemia: non-specific ST changes
*[employer] Interpretation
Rate: normal
Interpretation: normal
Rhythm: sinus
*Critical Care Note
Total Time (30-74mins, 75-104mins- exclusive of procedures): Not Applicable
Data Reviewed
Source: patient
Patient Management
Social determinants of health affecting care: Living situation and Strong social support
Discussion with other providers: Other (I spoke to [facility] crisis workers who reports that they offered their assistance to him and he told them that he is not interested in speaking to them)
Escalation/DeEscalation of care consider admission/obs:
Patient remains calm and cooperative with me. He assures me he will follow-up with his psychiatrist. Patient was not interested in speaking to [facility] crisis in the ED and reports that ' they never help him'. Patient adamantly denies suicidal and
homicidal thoughts.
His EKG appears nonischemic and he appears well and comfortable. Doubtful he is acute coronary syndrome. He has no pleuritic chest pain or shortness of breath to suggest PE. Clinically he has no pneumonia.
Update Note
Update Note:
I spoke personally to the plugger worker who reports that the patient was not interested in speaking to [facility] crisis at this time. Patient remains nonsuicidal not homicidal. He is calm and cooperative. Patient encouraged to follow-up with his own
psychiatrist. Patient is not interested in inpatient management, as I asked him.
ED Attending Note
-
Portions of this chart may have been created with voice recognition software.� Occasional wrong word or��sound alike� substitutions may have occurred due to the inherent limitations of voice recognition software.
Discharge Plan
Departure
Patient Disposition: Home (Routine Discharge)
Date of Disposition: 09/10/23
Time of Disposition: 15:16
Patient with high blood pressure during this ER visit?: Yes
Condition: Good
Covid-19: Not Applicable
Discharge Problem:
Anxiety
Instructions: Anxiety, Adult (DC)
Prescriptions:
New
lorazepam [Ativan] 1 mg tablet
1 mg PO BID PRN (Reason: anxiety) Qty: 7 0RF
No Action
dextroamphetamine-amphetamine [Adderall] 10 mg Tablet
10 mg PO HS
Patient Comments:
at 1300
clonazepam 0.5 mg Tablet
0.5 mg PO BID
dextroamphetamine-amphetamine [Adderall XR] 20 mg Capsule,Extended Release 24hr
20 mg PO DAILY
paroxetine HCl [Paxil] 40 mg Tablet
40 mg PO DAILY
ziprasidone HCl [Geodon] 60 mg Capsule
60 mg PO HS
hydroxyzine HCl 25 MG tablet
50 mg PO TID PRN (Reason: anxiety)
lorazepam [Ativan] 1 mg tablet
1 mg PO BID PRN (Reason: anxiety) Qty: 7 0RF
lorazepam [Ativan] 0.5 mg tablet
0.5 mg PO DAILY PRN (Reason: anxiety) Qty: 10 0RF
wdezokjbqh-kgwuffvtzzcar-ooon [Fioricet] 50-300-40 mg capsule
1 cap PO Q8H PRN (Reason: Headache) Qty: 14 0RF
lorazepam [Ativan] 0.5 mg tablet
0.5 mg PO BID PRN (Reason: anxiety) Qty: 3 0RF
Referrals:
Marilyn Chaney DO [Family Provider] -
Activity Restrictions/Additional Instructions:
Follow-up with your psychiatrist as soon as possible.
Interventions
Interventions:
*General Assessment Last Done: 09/10/23 16:20
*Nursing Disposition Last Done: 09/10/23 16:20
ED-Psychological Assessment Last Done: 09/10/23 12:29
Discharge Date and Time
Discharge Date/Time: 09/10/23 16:21
[2023-09-10 14:07] LABS: ALT (SGPT) 25 U/L (0-50); AST (SGOT) 32 U/L (17-59); Albumin 4.9 g/dl (3.5-5.0); Alkaline Phosphatase 50 U/L (38-126); Blood Urea Nitrogen 20 mg/dl (9-20); Calcium 9.7 mg/dl (8.4-10.2); Carbon Dioxide 28 mmol/L (22-30); Chloride 100 mmol/L (98-107); Glucose 106 mg/dl (70-99); Potassium 4.2 mmol/L (3.5-5.1); Sodium 136 mmol/L (135-145); Total Bilirubin 0.5 mg/dl (0.2-1.3); Total Protein 7.5 g/dl (6.3-8.2); eGFR > 60.00
[2023-09-10 14:15] LABS: Troponin I < 0.012 ng/ml
== END 2023-09-10 16:21 | disposition home or self-care (01) ==
LOC: EMR 11:29
PROVIDERS: EMERGENCY PHYSICIAN Emergency Medicine; FAMILY PHYSICIAN Internal Medicine
DX: F41.9 Anxiety disorder, unspecified (principal); F32.A Depression, unspecified
CPT/HCPCS: 99283; 80053; 84484; 85025; 93005

== ENCOUNTER 2023-12-05 01:26 | Emergency (ER) | payer OTHER, SELFPAY ==
[2023-12-05 01:27] VITALS: BP 118/55; BMI 33.3
--- NOTE | 2023-12-05 01:36 | ED.GENMED ---
History of Present Illness
General
Chief Complaint: Alcohol Problem
Source: patient and ambulance crew
Exam Limitations: none
Time Seen by Provider: 12/05/23 01:27
Nursing documentation reviewed up to this point in time: agreed with
Travel History
Have you had any contact with someone who has COVID-19?: No
Do you have any symptoms of coronavirus? Fever > 100 degrees, chills, cough, shortness of breath, sore throat, loss of taste or smell, muscle aches, or headache?: No
History of Present Illness
History of Present Illness:
Pleasantly intoxicated 33-year-old male presents to the emergency department after being found under a van sleeping. Police were summoned at awakened him. Patient admits to drinking alcohol this evening while out at a club. He feels nauseated and
did vomit several times and route to the hospital according to EMS. Patient has no complaints. He denies any trauma. He states that he was just lying down trying to get a nap. Patient admits to drinking alcohol.
Past History
Past History
ED Past Medical History: Psychiatric (Anxiety and depression.)
ED Past Surgical History: Other (Noncontributory)
Patient has exhibited threatening behavior?: No
PSI?: No
Social History
Tobacco: Non-smoker
Alcohol: Occasional
Drug: None
Personal: Single
Living: with family
Employment: Not employed
Family History
Family History: Other (Noncontributory)
Review of Systems
Review of Systems
Allergies reviewed?: Yes
All Other Systems: ROS reviewed and negative except as documented in HPI and ROS
Constitutional: Reports no symptoms
ABD/GI: Reports vomiting
Psychiatric: Reports anxiety
Phy Exam
General Physical Exam
General Presentation: well appearing and no apparent distress
General age: appears stated age
General Skin: warm and dry
General Habitus: normal
General Mental: anxious
Eye Exam
Eye Exam: PERRL and EOMI
Cardiovascular Exam
Cardiovascular Exam: regular rate/rhythm and no edema
Pulmonary Exam
Pulmonary Exam: lungs clear and no respiratory distress
Gastrointestinal Exam
Gastrointestinal Exam: normal bowel sounds, non tender, soft and non distended
Neurological Exam
Neurological Exam: alert, oriented x3 and appears intoxicated (Fully oriented)
Musculoskeletal Exam
Musculoskeletal Exam: full ROM and neck pain
Skin Exam
Skin Exam: normal color and warm/dry
Psychiatric Exam
Psychiatric Exam: normal mood/affect
Scores
Withdrawal Assessment of Alcohol
Withdrawal Assessment Completed?: Not applicable
Course
Vital Signs
Initial and Last Documented VS:
Initial Vital Signs
Temp Pulse Resp BP Pulse Ox
97.5 F 97 22 118/55 98
12/05/23 01:27 12/05/23 01:27 12/05/23 01:27 12/05/23 01:27 12/05/23 01:27
Last Documented Vital Signs
Temp Pulse Resp BP Pulse Ox
97.5 F 97 22 118/55 98
12/05/23 01:27 12/05/23 01:27 12/05/23 01:27 12/05/23 01:27 12/05/23 01:27
*Critical Care Note
Total Time (30-74mins, 75-104mins- exclusive of procedures): Not Applicable
ED Attending Note
-
Portions of this chart may have been created with voice recognition software.� Occasional wrong word or��sound alike� substitutions may have occurred due to the inherent limitations of voice recognition software.
Discharge Plan
Departure
Patient Disposition: Home (Routine Discharge)
Date of Disposition: 12/05/23
Time of Disposition: 05:43
Patient with high blood pressure during this ER visit?: Yes
Discharge Problem:
Alcohol abuse
Instructions: Alcohol Use Disorder (DC)
Prescriptions:
No Action
dextroamphetamine-amphetamine [Adderall] 10 mg Tablet
10 mg PO HS
Patient Comments:
at 1300
clonazepam 0.5 mg Tablet
0.5 mg PO BID
dextroamphetamine-amphetamine [Adderall XR] 20 mg Capsule,Extended Release 24hr
20 mg PO DAILY
paroxetine HCl [Paxil] 40 mg Tablet
40 mg PO DAILY
ziprasidone HCl [Geodon] 60 mg Capsule
60 mg PO HS
hydroxyzine HCl 25 MG tablet
50 mg PO TID PRN (Reason: anxiety)
lorazepam [Ativan] 1 mg tablet
1 mg PO BID PRN (Reason: anxiety) Qty: 7 0RF
lorazepam [Ativan] 0.5 mg tablet
0.5 mg PO DAILY PRN (Reason: anxiety) Qty: 10 0RF
frquinjdms-nkyzovnxnwpql-kmhd [Fioricet] 50-300-40 mg capsule
1 cap PO Q8H PRN (Reason: Headache) Qty: 14 0RF
lorazepam [Ativan] 0.5 mg tablet
0.5 mg PO BID PRN (Reason: anxiety) Qty: 3 0RF
lorazepam [Ativan] 1 mg tablet
1 mg PO BID PRN (Reason: anxiety) Qty: 7 0RF
Referrals:
[facility] [Outside]
[facility] [Outside]
UNKNOWN - PT NOT,[facility] [Family Provider] -
Activity Restrictions/Additional Instructions:
It was a pleasure meeting you and taking part in your care. We hope for your continued healing and wellness.
Please read discharge instructions in their entirety. However, they are for general education and may not describe your exact diagnosis at discharge. Information on your ER visit and medical conditions were discussed with you along with appropriate
follow up information...
If indicated, please take your medications as instructed and indicated on discharge paperwork.
Please schedule a follow up appointment as directed. Call to schedule an appointment
Please return to the emergency department with ANY change in, persisting, or worsening of symptoms. If any of your symptoms do not improve, or persist, or become more severe within 6-12 hours, please return to the emergency department for further
care.
Please return to the emergency department if you develop a headache, neck pain/stiffness, fever greater than 100.4F, chest pain, shortness of breath, persistent nausea, vomiting, slurred speech, difficulty walking, numbness/tingling, weakness, signs
of infection or any other symptoms that are worrisome to you.
If you have any questions or concerns please do not hesitate to call the Hospital at or E-mail me directly at [email or web address]
Interventions
Interventions:
*Risk Screen - Suicide Last Done: 12/05/23 01:27
*General Assessment Last Done: 12/05/23 01:27
*Neglect/Abuse Screening Last Done: 12/05/23 01:27
*ED COVID-19 Vaccine History Last Done: 12/05/23 01:27
*Nursing Disposition Last Done: 12/05/23 05:46
ED- Neurological Assessment Last Done: 12/05/23 01:45
ED-Psychological Assessment Last Done: 12/05/23 01:45
Discharge Date and Time
Discharge Date/Time: 12/05/23 05:49
Print Language: MACEDONIAN
== END 2023-12-05 05:49 | disposition home or self-care (01) ==
LOC: EMR 01:26
PROVIDERS: EMERGENCY PHYSICIAN Student in an Organized Health Care Education/Training Program
DX: F10.129 Alcohol abuse with intoxication, unspecified (principal); R11.2 Nausea with vomiting, unspecified; M54.2 Cervicalgia; R03.0 Elevated blood-pressure reading, without diagnosis of hypertension; F41.9 Anxiety disorder, unspecified; F32.A Depression, unspecified
CPT/HCPCS: 99283

== ENCOUNTER 2024-01-25 19:39 | Emergency (ER) | payer OTHER, SELFPAY ==
[2024-01-25 19:43] VITALS: BP 135/71
[2024-01-25] MEDS: VIBRAMYCIN 100 MG PO (21:25)
[2024-01-25] MEDS: ROCEPHIN 500 MG IM (21:26)
--- NOTE | 2024-01-25 22:30 | ED.GENMED ---
History of Present Illness
General
Chief Complaint: Male Genito-Urinary Symptoms
Source: patient
Exam Limitations: none
Time Seen by Provider: 01/25/24 20:57
Nursing documentation reviewed up to this point in time: agreed with
History of Present Illness
History of Present Illness:
Patient to ED with concerns for STD. States he had unprotected sex 'a few weeks ago'. Currently asymptomatic but anxious. Brought self to ED for eval.
Past History
Past History
ED Past Medical History: Psychiatric (Anxiety and depression.)
ED Past Surgical History: Other (Noncontributory)
Patient has exhibited threatening behavior?: No
PSI?: No
Social History
Tobacco: Non-smoker
Alcohol: Occasional
Drug: None
Personal: Single
Living: with family
Employment: Not employed
Family History
Family History: Other (Noncontributory)
Review of Systems
Review of Systems
Allergies reviewed?: Yes
All Other Systems: ROS reviewed and negative except as documented in HPI and ROS
Constitutional: Reports no symptoms
EENT: Reports no symptoms
Respiratory: Reports no symptoms
Cardiac: Reports no symptoms
ABD/GI: Reports no symptoms
: Reports no symptoms
Musculoskeletal: Reports no symptoms
Skin: Reports no symptoms
Neurological: Reports no symptoms
Psychiatric: Reports no symptoms
Phy Exam
General Physical Exam
General Presentation: well appearing and no apparent distress
General age: appears stated age
General Skin: warm and dry
General Habitus: normal
General Mental: alert
Gastrointestinal Exam
Gastrointestinal Exam: non tender and soft
Genitourinary Exam Male
Exam Male: circumcised, no CVAT, no discharge, normal external genitalia, normal testicular exam, no evidence of trauma, no lesions, no testicular swelling and no testicular tenderness
Musculoskeletal Exam
Musculoskeletal Exam: full ROM and neuro vasc intact
Skin Exam
Skin Exam: normal color, warm/dry and no rash
Psychiatric Exam
Psychiatric Exam: normal mood/affect
Course
Orders/Labs/Results
Orders:
Orders
01/25/24 19:53
Chlamydia/GC by PCR Urgent
SMITH Source: Urine
Specimen Description:
Source:: URINE
Date Specimen was Collected: 01/25/24
Time Specimen was Collected: 19:46
01/25/24 21:01
Doxycycline [Vibramycin] 100 mg PO NOW STA
01/25/24 21:06
Ceftriaxone Sodium [Rocephin] 500 mg IM NOW STA
01/25/24 21:22
Sterile Water [Sterile Water For Injection] 10 ml .ROUTE .Roomlr-MED ONE
Vital Signs
Initial and Last Documented VS:
Initial Vital Signs
Temp Pulse Resp BP Pulse Ox
97.9 F 96 18 135/71 98
01/25/24 19:43 01/25/24 19:43 01/25/24 19:43 01/25/24 19:43 01/25/24 19:43
Last Documented Vital Signs
Temp Pulse Resp BP Pulse Ox
97.9 F 89 20 135/71 100
01/25/24 19:43 01/25/24 21:25 01/25/24 21:25 01/25/24 19:43 01/25/24 21:25
*Critical Care Note
Total Time (30-74mins, 75-104mins- exclusive of procedures): Not Applicable
Update Note
Update Note:
Patient to ED wtih high anxiety of unprotected sex a few weeks ago. Genitalia exam negative for lesions, discharge. No swelling or pain. gc/chlamydia culture is pending. Prophylactic antibiotcs started in dept, He is discharged home and
encouraged to follow up with PCP.
ED Attending Note
-
Portions of this chart may have been created with voice recognition software.� Occasional wrong word or��sound alike� substitutions may have occurred due to the inherent limitations of voice recognition software.
Discharge Plan
Departure
Patient Disposition: Home (Routine Discharge)
Date of Disposition: 01/25/24
Time of Disposition: 21:08
Patient with high blood pressure during this ER visit?: No
Condition: Good
Covid-19: Not Applicable
Discharge Problem:
Encounter for assessment of STD exposure
Instructions: STI Prevention
Prescriptions:
New
doxycycline hyclate 100 mg capsule
100 mg PO BID Qty: 13 0RF
No Action
dextroamphetamine-amphetamine [Adderall] 10 mg Tablet
10 mg PO HS
Patient Comments:
at 1300
clonazepam 0.5 mg Tablet
0.5 mg PO BID
dextroamphetamine-amphetamine [Adderall XR] 20 mg Capsule,Extended Release 24hr
20 mg PO DAILY
paroxetine HCl [Paxil] 40 mg Tablet
40 mg PO DAILY
ziprasidone HCl [Geodon] 60 mg Capsule
60 mg PO HS
hydroxyzine HCl 25 MG tablet
50 mg PO TID PRN (Reason: anxiety)
lorazepam [Ativan] 1 mg tablet
1 mg PO BID PRN (Reason: anxiety) Qty: 7 0RF
lorazepam [Ativan] 0.5 mg tablet
0.5 mg PO DAILY PRN (Reason: anxiety) Qty: 10 0RF
nlsqdarkql-zaoumuowbrmzz-nuda [Fioricet] 50-300-40 mg capsule
1 cap PO Q8H PRN (Reason: Headache) Qty: 14 0RF
lorazepam [Ativan] 0.5 mg tablet
0.5 mg PO BID PRN (Reason: anxiety) Qty: 3 0RF
lorazepam [Ativan] 1 mg tablet
1 mg PO BID PRN (Reason: anxiety) Qty: 7 0RF
Activity Restrictions/Additional Instructions:
Follow up with your family doctor.
Interventions
Interventions:
*Risk Screen - Suicide Last Done: 01/25/24 21:25
*General Assessment Last Done: 01/25/24 21:25
*Neglect/Abuse Screening Last Done: 01/25/24 21:25
ED- Fall Risk Assessment Last Done: 01/25/24 21:25
*ED COVID-19 Vaccine History Last Done: 01/25/24 21:25
*Nursing Disposition Last Done: 01/25/24 21:25
ED-Male Genitourinary Assessment Last Done: 01/25/24 21:25
Discharge Date and Time
Discharge Date/Time: 01/25/24 21:35
Print Language: SRI LANKAN
== END 2024-01-25 21:35 | disposition home or self-care (01) ==
LOC: EMR 19:39
PROVIDERS: EMERGENCY PHYSICIAN Emergency Medicine; FAMILY PHYSICIAN Internal Medicine
DX: Z20.2 Contact with and (suspected) exposure to infections with a predominantly sexual mode of transmission (principal); F41.9 Anxiety disorder, unspecified; F32.A Depression, unspecified
CPT/HCPCS: 99284; 96372; 87491; 87591

== ENCOUNTER 2024-04-01 22:07 | Emergency (ER) | payer OTHER, SELFPAY ==
[2024-04-01 22:12] VITALS: BP 156/94
[2024-04-01 22:33] VITALS: BMI 30.5
--- NOTE | 2024-04-01 22:37 | ED.SKININJ ---
HPI-Injury
General
Chief Complaint: Skin Problem
Source: patient
Exam Limitations: none
Time Seen by Provider: 04/01/24 22:27
History of Present Illness-Injury
Initial Injury comments:
33-year-old male presents complaining of itchiness from his diagnosed folliculitis. He saw a scientific affairs manager over a week ago and thought to have the folliculitis of the quadricep area on the upper arms bilaterally. No new detergents or soaps. He
was placed on doxycycline and given triamcinolone cream. He states the itch is most uncomfortable at this time. Has been using Benadryl but does not seem to help. No known contacts with people with similar rash. He denies a fever. No other
complaints at this time
Past History
Past History
ED Past Medical History: Psychiatric (Anxiety and depression.)
ED Past Surgical History: Other (Noncontributory)
Patient has exhibited threatening behavior?: No
PSI?: No
Social History
Tobacco: Non-smoker
Alcohol: Occasional
Drug: None
Personal: Single
Living: with family
Employment: Not employed
Family History
Family History: Other (Noncontributory)
Phy Exam
Physical Exam
Physical Exam:
General: Well-appearing male no acute respiratory distress
HEENT: Normocephalic atraumatic
Heart: Regular rate and rhythm
Lungs: Clear no wheeze
Skin: Pruritic rash over the upper extremities as well as the inner thighs bilaterally. This does seem to be follicular in nature. No underlying fluctuance or induration. No drainage or discharge
Extremities: no cyanosis or edema
Course
Orders/Labs/Results
Orders:
Orders
04/01/24 22:36
Prednisone [Deltasone] 50 mg PO NOW STA
Vital Signs
Initial and Last Documented VS:
Initial Vital Signs
Temp Pulse Resp BP Pulse Ox
98.3 F 64 18 156/94 98
04/01/24 22:12 04/01/24 22:12 04/01/24 22:12 04/01/24 22:12 04/01/24 22:12
Last Documented Vital Signs
Temp Pulse Resp BP Pulse Ox
98.3 F 64 18 156/94 98
04/01/24 22:12 04/01/24 22:12 04/01/24 22:12 04/01/24 22:12 04/01/24 22:12
MDM/Problems Addressed
Differential Diagnosis Includes:
Itchy rash. Recent diagnosis of folliculitis. Question inflammatory versus infectious. He is currently taking doxycycline. Not overwhelming exam for cellulitis. No evidence of abscess. Will add prednisone to his regimen. Dose given here and
will prescribe more to take at home. There is no mucosal involvement or sloughing of the skin. Do not suspect Barksdale-Cesar's
*Critical Care Note
Total Time (30-74mins, 75-104mins- exclusive of procedures): Not Applicable
ED Attending Note
-
Portions of this chart may have been created with voice recognition software.� Occasional wrong word or��sound alike� substitutions may have occurred due to the inherent limitations of voice recognition software.
Discharge Plan
Departure
Patient Disposition: Home (Routine Discharge)
Date of Disposition: 04/01/24
Time of Disposition: 22:40
Patient with high blood pressure during this ER visit?: No
Discharge Problem:
Rash
Instructions: Skin Rash (DC)
Prescriptions:
New
prednisone 10 mg Tablet
See Rx Instructions .ROUTE .COMPLEX Qty: 45 0RF
Rx Instructions:
Take By Mouth:
50 mg daily x3 days, 40 mg daily x3 days,
30 mg daily x3 days, 20 mg daily x3 days,
10 mg daily x3 days
No Action
dextroamphetamine-amphetamine [Adderall] 10 mg Tablet
10 mg PO HS
Patient Comments:
at 1300
clonazepam 0.5 mg Tablet
0.5 mg PO BID
dextroamphetamine-amphetamine [Adderall XR] 20 mg Capsule,Extended Release 24hr
20 mg PO DAILY
paroxetine HCl [Paxil] 40 mg Tablet
40 mg PO DAILY
ziprasidone HCl [Geodon] 60 mg Capsule
60 mg PO HS
hydroxyzine HCl 25 MG tablet
50 mg PO TID PRN (Reason: anxiety)
lorazepam [Ativan] 1 mg tablet
1 mg PO BID PRN (Reason: anxiety) Qty: 7 0RF
lorazepam [Ativan] 0.5 mg tablet
0.5 mg PO DAILY PRN (Reason: anxiety) Qty: 10 0RF
ngvljwavro-crzdprcniujce-jnfe [Fioricet] 50-300-40 mg capsule
1 cap PO Q8H PRN (Reason: Headache) Qty: 14 0RF
lorazepam [Ativan] 0.5 mg tablet
0.5 mg PO BID PRN (Reason: anxiety) Qty: 3 0RF
lorazepam [Ativan] 1 mg tablet
1 mg PO BID PRN (Reason: anxiety) Qty: 7 0RF
doxycycline hyclate 100 mg capsule
100 mg PO BID Qty: 13 0RF
Activity Restrictions/Additional Instructions:
Continue antibiotics until complete. Use prednisone as directed. Continue with Benadryl if needed. Return if worse otherwise follow-up with your doctor
Interventions
Interventions:
*Risk Screen - Suicide Last Done: 04/01/24 22:08
*General Assessment Last Done: 04/01/24 22:12
*Neglect/Abuse Screening Last Done: 04/01/24 22:33
*ED COVID-19 Vaccine History Last Done: 04/01/24 22:33
ED-Skin Assessment Last Done: 04/01/24 22:33
Discharge Date and Time
Print Language: JAPANESE
[2024-04-01] MEDS: DELTASONE 50 MG PO (22:39)
== END 2024-04-01 22:45 | disposition home or self-care (01) ==
LOC: EMR 22:07
PROVIDERS: EMERGENCY PHYSICIAN Emergency Medicine; FAMILY PHYSICIAN Internal Medicine
DX: R21 Rash and other nonspecific skin eruption (principal); F41.8 Other specified anxiety disorders
CPT/HCPCS: 99282

== ENCOUNTER 2024-04-06 22:04 | Emergency (ER) | payer OTHER, SELFPAY ==
[2024-04-06 22:08] VITALS: BP 125/82
--- NOTE | 2024-04-06 22:59 | EDRN ---
Pt awoke tonight with a burning feeling upper arms. Pt states thathe has used tanning oils and wonders if that could cause this.
--- NOTE | 2024-04-06 23:00 | ED.GENMED ---
History of Present Illness
General
Chief Complaint: Skin Problem
Source: patient
Exam Limitations: none
Time Seen by Provider: 04/06/24 22:35
Nursing documentation reviewed up to this point in time: agreed with
History of Present Illness
History of Present Illness:
Patient is a 33-year-old male who presents to the ER complaining of rash. Patient reports he was diagnosed with folliculitis fact he was here April 01. This rash was diagnosed by charting clerk. At that time he was placed on doxycycline and
triamcinolone cream. In addition patient was seen here on 01 April 5 days ago and was treated with prednisone for 9 days.
Patient presents to the ER for evaluation today. He reports he was sleeping woke up with a burning sensation to both arms. He states he actually feels that this is more anxiety than anything. He does have a history of anxiety depression and has
been trying to wean off Abilify and feels that he is more anxious than anything causing the symptoms. He did have a long appointment with his physician today who encouraged him to start back on Abilify.
He is still using the triamcinolone cream the prednisone on the doxycycline as previously prescribed. He denies any fever or chills.
He does report he was outside today for about 60 minutes with no shirt on using his stationary bike and may have also gotten sunburn.
Past History
Past History
ED Past Medical History: Psychiatric (Anxiety and depression.)
ED Past Surgical History: Other (Noncontributory)
Patient has exhibited threatening behavior?: No
PSI?: No
Social History
Tobacco: Non-smoker
Alcohol: Occasional
Drug: None
Personal: Single
Living: with family
Employment: Not employed
Family History
Family History: Other (Noncontributory)
Review of Systems
Review of Systems
Allergies reviewed?: Yes
All Other Systems: ROS reviewed and negative except as documented in HPI and ROS
Constitutional: Reports no symptoms; Denies fever
Respiratory: Reports no symptoms
ABD/GI: Reports no symptoms; Denies nausea or vomiting
Musculoskeletal: Reports no symptoms
Skin: Reports other (Burning sensation to b/l arms )
Neurological: Reports no symptoms
Psychiatric: Reports anxiety; Denies suicidal
Phy Exam
General Physical Exam
General Presentation: no apparent distress
General age: appears stated age
General Skin: warm and dry
General Habitus: normal
General Mental: alert
General Hydration: appears well hydrated
Neurological Exam
Neurological Exam: alert and oriented x3
Musculoskeletal Exam
Musculoskeletal Exam: full ROM
Skin Exam
Skin Exam: normal color, warm/dry and other (small bumps b/l to arms and back consistent w/ folliculitis + erythema to chest /back )
Psychiatric Exam
Psychiatric Exam: normal mood/affect
Course
Vital Signs
Initial and Last Documented VS:
Initial Vital Signs
Temp Pulse Resp BP Pulse Ox
97.5 F 78 18 125/82 99
04/06/24 22:08 04/06/24 22:08 04/06/24 22:08 04/06/24 22:08 04/06/24 22:08
Last Documented Vital Signs
Temp Pulse Resp BP Pulse Ox
97.5 F 78 18 125/82 99
04/06/24 22:08 04/06/24 22:08 04/06/24 22:08 04/06/24 22:08 04/06/24 22:08
MDM/Problems Addressed
Differential Diagnosis Includes:
not limited to sunburn, folliculitis, anxiety,
MDM/Problems Addressed:
documented pt is currently being treated for folliculitis, seen by his charting clerk as well as here in the ER. He currently is taking triamcinolone cream steroids and doxycycline. He complained of burning to his arms and skin that woke him
from sleep. On exam he has folliculitis however has an obvious sunburn to his back and chest. He admits to being outside on his stationary bike to help his anxiety today and was biking without a shirt for 60 minutes. Symptoms of burning likely
consistent with sunburn(likely from doxy and sun exposure) Patient also feels very anxious. He reports he was trying to wean himself off of Abilify for anxiety but after discussion with physician today will continue to take. discussed cool
compresses and ibuprofen and ibuprofen. Recommended sunscreen and that proper clothing while outside in the sun to limit sun exposure especially since he is on Doxycycline.
Chronic conditions affecting care:
anxiety
*Critical Care Note
Total Time (30-74mins, 75-104mins- exclusive of procedures): Not Applicable
ED Attending Note
-
Portions of this chart may have been created with voice recognition software.� Occasional wrong word or��sound alike� substitutions may have occurred due to the inherent limitations of voice recognition software.
Discharge Plan
Departure
Patient Disposition: Home (Routine Discharge)
Date of Disposition: 04/06/24
Time of Disposition: 23:22
Patient with high blood pressure during this ER visit?: No
Condition: Fair
Covid-19: Not Applicable
Discharge Problem:
Sunburn, Anxiety, Folliculitis
Instructions: Bacterial Folliculitis (DC), Sunburn (DC), BLOOD PRESSURE
Prescriptions:
No Action
dextroamphetamine-amphetamine [Adderall] 10 mg Tablet
10 mg PO HS
Patient Comments:
at 1300
clonazepam 0.5 mg Tablet
0.5 mg PO BID
dextroamphetamine-amphetamine [Adderall XR] 20 mg Capsule,Extended Release 24hr
20 mg PO DAILY
paroxetine HCl [Paxil] 40 mg Tablet
40 mg PO DAILY
ziprasidone HCl [Geodon] 60 mg Capsule
60 mg PO HS
hydroxyzine HCl 25 MG tablet
50 mg PO TID PRN (Reason: anxiety)
lorazepam [Ativan] 1 mg tablet
1 mg PO BID PRN (Reason: anxiety) Qty: 7 0RF
lorazepam [Ativan] 0.5 mg tablet
0.5 mg PO DAILY PRN (Reason: anxiety) Qty: 10 0RF
xswrhygrpp-bvgawruwpyzqc-sshl [Fioricet] 50-300-40 mg capsule
1 cap PO Q8H PRN (Reason: Headache) Qty: 14 0RF
lorazepam [Ativan] 0.5 mg tablet
0.5 mg PO BID PRN (Reason: anxiety) Qty: 3 0RF
lorazepam [Ativan] 1 mg tablet
1 mg PO BID PRN (Reason: anxiety) Qty: 7 0RF
doxycycline hyclate 100 mg capsule
100 mg PO BID Qty: 13 0RF
prednisone 10 mg Tablet
See Rx Instructions .ROUTE .COMPLEX Qty: 45 0RF
Rx Instructions:
Take By Mouth:
50 mg daily x3 days, 40 mg daily x3 days,
30 mg daily x3 days, 20 mg daily x3 days,
10 mg daily x3 days
Referrals:
Marilyn Chaney DO [Family Provider] -
Activity Restrictions/Additional Instructions:
You may continue on doxycycline and steroids and triamcinolone however avoid direct sun exposure while taking doxycycline. Be sure to wear proper clothing and wear sunscreen. Cool compresses to area you may take ibuprofen as needed. Return if any
worsening of symptoms follow-up with your family doctor in the next several days.
Interventions
Interventions:
*Risk Screen - Suicide Last Done: 04/06/24 22:05
*General Assessment Last Done: 04/06/24 22:49
*Neglect/Abuse Screening Last Done: 04/06/24 22:49
ED- Fall Risk Assessment Last Done: 04/06/24 22:49
*ED COVID-19 Vaccine History Last Done: 04/06/24 22:49
ED-Skin Assessment Last Done: 04/06/24 22:49
Discharge Date and Time
Print Language: PANAMANIAN
[2024-04-06] MEDS: MOTRIN 600 MG PO (23:57)
[2024-04-07 00:05] VITALS: BP 134/71
== END 2024-04-07 00:05 | disposition home or self-care (01) ==
LOC: EMR 22:04
PROVIDERS: EMERGENCY PHYSICIAN Student in an Organized Health Care Education/Training Program; FAMILY PHYSICIAN Internal Medicine
DX: L73.9 Follicular disorder, unspecified (principal); L55.9 Sunburn, unspecified; F41.9 Anxiety disorder, unspecified; F32.A Depression, unspecified
CPT/HCPCS: 99283

== ENCOUNTER 2024-05-08 00:46 | Emergency (ER) | payer OTHER, SELFPAY ==
[2024-05-08 00:49] VITALS: BP 142/100
--- NOTE | 2024-05-08 01:39 | ED.GENMED ---
History of Present Illness
General
Chief Complaint: Skin Problem
Source: patient
Exam Limitations: none
Time Seen by Provider: 05/08/24 01:01
Nursing documentation reviewed up to this point in time: agreed with
History of Present Illness
History of Present Illness:
34-year-old male presents emergency department complaining of itching and skin pain. Worse for the past several days. He has been diagnosed with folliculitis, by dermatology. He was on the prednisone taper and triamcinolone, as well as
doxycycline. This did help him. He has a follow-up appointment with dermatology.
Past History
Past History
ED Past Medical History: Psychiatric (Anxiety and depression.) and Other (Folliculitis)
ED Past Surgical History: Other (Noncontributory)
Patient has exhibited threatening behavior?: No
PSI?: No
Social History
Tobacco: Non-smoker
Alcohol: Occasional
Drug: None
Personal: Single
Living: with family
Employment: Not employed
Family History
Family History: Other (Noncontributory)
Review of Systems
Review of Systems
Allergies reviewed?: Yes
All Other Systems: Not applicable
Constitutional: Reports no symptoms
EENT: Reports no symptoms
Respiratory: Reports no symptoms
Cardiac: Reports no symptoms
ABD/GI: Reports no symptoms
: Reports no symptoms
Musculoskeletal: Reports no symptoms
Skin: Reports itching and rash
Neurological: Reports no symptoms
Endocrine: Reports no symptoms
Hematologic/Lymphatic: Reports no symptoms
Psychiatric: Reports no symptoms
Phy Exam
Physical Exam
Physical Exam:
Physical Exam
General: no apparent distress, not acutely ill
Neck: supple. no meningeal signs. normal posterior pharynx
Heart: s1/s2 regular rate and rhythm, no murmur. equal radial
pulses.
HEENT: Pupils equal round reactive to light, EOMI
Lungs: no acute respiratory distress. clear bilaterally
Abdomen: normal bowel sounds. not tender. no CVAT
Neuro: alert and oriented. no focal neurological deficits cranial nerves II through XII intact
Skin: Diffuse mild erythema on trunk and arms
Psychiatric: well kept. interactive and cooperative
Extremities: no edema. no calf tenderness. negative homans. good distal pulses
Course
Vital Signs
Initial and Last Documented VS:
Initial Vital Signs
Temp Pulse Resp BP Pulse Ox
97.6 F 89 16 142/100 99
05/08/24 00:49 05/08/24 00:49 05/08/24 00:49 05/08/24 00:49 05/08/24 00:49
Last Documented Vital Signs
Temp Pulse Resp BP Pulse Ox
97.6 F 89 16 142/100 99
05/08/24 00:49 05/08/24 00:49 05/08/24 00:49 05/08/24 00:49 05/08/24 00:49
MDM/Problems Addressed
Differential Diagnosis Includes:
Cellulitis, folliculitis
MDM/Problems Addressed:
34-year-old male with dermatitis, stable for discharge. Treat with course of prednisone and Benadryl. Dermatology follow-up. This is possibly related to folliculitis.
Acute Exacerbation and/or Progression of Chronic Illness: Other (Folliculitis)
*Pulse Oximetry
Patient hypoxic: no
*Critical Care Note
Total Time (30-74mins, 75-104mins- exclusive of procedures): Not Applicable
Patient Management
Social determinants of health affecting care: Living situation and Strong social support
Escalation/DeEscalation of care consider admission/obs:
Admit not indicated
ED Attending Note
-
Portions of this chart may have been created with voice recognition software.� Occasional wrong word or��sound alike� substitutions may have occurred due to the inherent limitations of voice recognition software.
Discharge Plan
Departure
Patient Disposition: Home (Routine Discharge)
Date of Disposition: 05/08/24
Time of Disposition: 01:42
Patient with high blood pressure during this ER visit?: Yes
Condition: Good
Discharge Problem:
Dermatitis
Instructions: Skin Rash ED, BLOOD PRESSURE
Prescriptions:
New
prednisone 10 mg Tablet
See Rx Instructions .ROUTE .COMPLEX Qty: 30 0RF
Rx Instructions:
Take By Mouth:
40 mg daily x3 days, 30 mg daily x3 days,
20 mg daily x3 days, 10 mg daily x3 days.
No Action
dextroamphetamine-amphetamine [Adderall] 10 mg Tablet
10 mg PO HS
Patient Comments:
at 1300
clonazepam 0.5 mg Tablet
0.5 mg PO BID
dextroamphetamine-amphetamine [Adderall XR] 20 mg Capsule,Extended Release 24hr
20 mg PO DAILY
paroxetine HCl [Paxil] 40 mg Tablet
40 mg PO DAILY
ziprasidone HCl [Geodon] 60 mg Capsule
60 mg PO HS
hydroxyzine HCl 25 MG tablet
50 mg PO TID PRN (Reason: anxiety)
lorazepam [Ativan] 1 mg tablet
1 mg PO BID PRN (Reason: anxiety) Qty: 7 0RF
lorazepam [Ativan] 0.5 mg tablet
0.5 mg PO DAILY PRN (Reason: anxiety) Qty: 10 0RF
erwhahbjjw-kdvqmnaniyday-qqua [Fioricet] 50-300-40 mg capsule
1 cap PO Q8H PRN (Reason: Headache) Qty: 14 0RF
lorazepam [Ativan] 0.5 mg tablet
0.5 mg PO BID PRN (Reason: anxiety) Qty: 3 0RF
lorazepam [Ativan] 1 mg tablet
1 mg PO BID PRN (Reason: anxiety) Qty: 7 0RF
doxycycline hyclate 100 mg capsule
100 mg PO BID Qty: 13 0RF
prednisone 10 mg Tablet
See Rx Instructions .ROUTE .COMPLEX Qty: 45 0RF
Rx Instructions:
Take By Mouth:
50 mg daily x3 days, 40 mg daily x3 days,
30 mg daily x3 days, 20 mg daily x3 days,
10 mg daily x3 days
Interventions
Interventions:
*Risk Screen - Suicide Last Done: 05/08/24 00:49
*General Assessment Last Done: 05/08/24 00:49
*Neglect/Abuse Screening Last Done: 05/08/24 00:49
Discharge Date and Time
Print Language: ARGENT[place]
[2024-05-08] MEDS: DELTASONE 50 MG PO (01:56)
== END 2024-05-08 02:26 | disposition home or self-care (01) ==
LOC: EMR 00:46
PROVIDERS: EMERGENCY PHYSICIAN Emergency Medicine; FAMILY PHYSICIAN Internal Medicine
DX: L30.9 Dermatitis, unspecified (principal)
CPT/HCPCS: 99283

== ENCOUNTER 2024-05-13 14:47 | Emergency (ER) | payer OTHER, SELFPAY ==
[2024-05-13 14:48] VITALS: BP 185/89
--- NOTE | 2024-05-13 15:14 | ED.GENMED ---
History of Present Illness
General
Chief Complaint: Anxiety
Source: patient
Exam Limitations: none
Time Seen by Provider: 05/13/24 15:26
Nursing documentation reviewed up to this point in time: agreed with
History of Present Illness
History of Present Illness:
34 yo male with significant history of anxiety here admitting he is 'so anxious' about a shortage of Adderall he can't get it for 2 more days (Wednesday). He ran out 3 days ago.
He took Ativan 1 mg an hour ago.
He is taking his Abilify and Lexapro as prescribed.
His therapist is at [facility] [place], saw two weeks ago, has appt in 3 weeks.
Typically take Adderall 20 mg a.m. 15mg p.m.
He agrees giving him a dose now will not help him over the weekend.
States 'I just don't want to spiral' Denies SI.
States he will feel better if I do lab work and it's normal.
Past History
Past History
ED Past Medical History: Psychiatric (Anxiety and depression.) and Other (Folliculitis)
ED Past Surgical History: Other (Noncontributory)
Patient has exhibited threatening behavior?: No
PSI?: No
Social History
Tobacco: Non-smoker
Alcohol: Occasional
Drug: None
Personal: Single
Living: with family
Employment: Not employed
Family History
Family History: Other (Noncontributory)
Review of Systems
Review of Systems
Allergies reviewed?: Yes
All Other Systems: ROS reviewed and negative except as documented in HPI and ROS
Constitutional: Denies fever or fatigue
Respiratory: Denies trouble breathing
Cardiac: Reports chest pain; Denies diaphoresis or palpitations
ABD/GI: Denies abdominal pain, nausea, vomiting or diarrhea
: Denies dysuria
Musculoskeletal: Reports no symptoms
Skin: Reports no symptoms
Neurological: Reports no symptoms
Psychiatric: Reports anxiety; Denies suicidal
Phy Exam
Physical Exam
Physical Exam:
GENERAL: No acute distress. A&Ox3.
CONSTITUTIONAL: Afebrile.
EYES: clear, conjunctivae normal
ENMT: moist mucus membranes, Pharynx nl
RESPIRATORY: Regular respirations, nonlabored, lungs clear.
CARDIOVASCULAR: Regular rate and rhythm, no murmurs, no rubs.
GI: Soft, nontender
MUSCULOSKELETAL: Moves with ease. Well perfused.
SKIN: Warm, dry, pink
PSYCH: Anxious mood and affect. Well kept, interactive and appropriate
NEUROLOGIC: Awake, alert and oriented. No focal neurological deficits
Course
Orders/Labs/Results
Orders:
Orders
05/13/24 14:53
EKG [Electrocardiogram (*1)] Urgent
Reason for Study: Chest Pain
EKG- Treatment ONCE
05/13/24 15:30
Complete Blood Count/With Diff Urgent
Comprehensive Metabolic Panel Urgent
Troponin I Urgent
05/13/24 16:16
Amphet Asp/Amphet/D-Amphet [Adderall] 15 mg PO NOW STA
Abnormal Lab Results
05/13/24
15:30
Abs Immat Gran (auto) 0.1 H 10^3/uL
(0-0.05)
Absolute Neuts (auto) 7.2 H 10^3/uL
(1.4-6.5)
Immature Gran % 0.8 H %
(0-0.5)
Lymphocytes % 19.0 L %
(20.5-51.1)
Glucose 111 H mg/dl
(70-99)
Albumin 5.1 H g/dl
(3.5-5.0)
05/13/24 15:30
05/13/24 15:30
Vital Signs
Initial and Last Documented VS:
Initial Vital Signs
Temp Pulse Resp BP Pulse Ox
97.5 F 103 22 185/89 99
05/13/24 14:48 05/13/24 14:48 05/13/24 14:48 05/13/24 14:48 05/13/24 14:48
Last Documented Vital Signs
Temp Pulse Resp BP Pulse Ox
97.5 F 84 20 154/85 95
05/13/24 14:48 05/13/24 16:17 05/13/24 16:01 05/13/24 16:17 05/13/24 15:45
MDM/Problems Addressed
Differential Diagnosis Includes:
anxiety
MDM/Problems Addressed:
34 yo male with significant history of anxiety here admitting he is 'so anxious' about a shortage of Adderall he can't get it for 2 more days (Wednesday). He ran out 3 days ago. He states he's had chest pains
He took Ativan 1 mg an hour ago.
He is taking his Abilify and Lexapro as prescribed.
States 'I just don't want to spiral' Denies SI.
His therapist is at [facility] [place] [facility], saw two weeks ago, has appt in 3 weeks.
Typically take Adderall 20 mg a.m. 15mg p.m.
He agrees giving him a dose now will not help him over the weekend.
He is reassured knowing his EKG shows nothing worrisome
States he will feel better if I do lab work and it's normal.
4:15 p.m.
CBC normal
CmP normal
EKG Sinus tach rate 104 on arrival. Monitor has shown HR 80's during entire rest of stay
Patient reassured that his medical workup here is unremarkable, nothing worrisome.
He is very appreciative
Offered his p.m. dose of Adderall 15 mg which he states he will take and he will use his Ativan tomorrow until he can get his Adderall the next day, Wednesday
He will be going home. He states he lives with his family, they are very supportive.
*Critical Care Note
Total Time (30-74mins, 75-104mins- exclusive of procedures): Not Applicable
ED Attending Note
-
Portions of this chart may have been created with voice recognition software.� Occasional wrong word or��sound alike� substitutions may have occurred due to the inherent limitations of voice recognition software.
Discharge Plan
Departure
Patient Disposition: Home (Routine Discharge)
Date of Disposition: 05/13/24
Time of Disposition: 16:15
Patient with high blood pressure during this ER visit?: Yes
Condition: Fair
Discharge Problem:
Anxiety about health
Instructions: Anxiety, Adult (DC)
Prescriptions:
No Action
dextroamphetamine-amphetamine [Adderall] 10 mg Tablet
10 mg PO HS
Patient Comments:
at 1300
clonazepam 0.5 mg Tablet
0.5 mg PO BID
dextroamphetamine-amphetamine [Adderall XR] 20 mg Capsule,Extended Release 24hr
20 mg PO DAILY
paroxetine HCl [Paxil] 40 mg Tablet
40 mg PO DAILY
ziprasidone HCl [Geodon] 60 mg Capsule
60 mg PO HS
hydroxyzine HCl 25 MG tablet
50 mg PO TID PRN (Reason: anxiety)
lorazepam [Ativan] 1 mg tablet
1 mg PO BID PRN (Reason: anxiety) Qty: 7 0RF
lorazepam [Ativan] 0.5 mg tablet
0.5 mg PO DAILY PRN (Reason: anxiety) Qty: 10 0RF
yldyfabmwj-thxldpzhhxlft-ezmt [Fioricet] 50-300-40 mg capsule
1 cap PO Q8H PRN (Reason: Headache) Qty: 14 0RF
lorazepam [Ativan] 0.5 mg tablet
0.5 mg PO BID PRN (Reason: anxiety) Qty: 3 0RF
lorazepam [Ativan] 1 mg tablet
1 mg PO BID PRN (Reason: anxiety) Qty: 7 0RF
doxycycline hyclate 100 mg capsule
100 mg PO BID Qty: 13 0RF
prednisone 10 mg Tablet
See Rx Instructions .ROUTE .COMPLEX Qty: 45 0RF
Rx Instructions:
Take By Mouth:
50 mg daily x3 days, 40 mg daily x3 days,
30 mg daily x3 days, 20 mg daily x3 days,
10 mg daily x3 days
prednisone 10 mg Tablet
See Rx Instructions .ROUTE .COMPLEX Qty: 30 0RF
Rx Instructions:
Take By Mouth:
40 mg daily x3 days, 30 mg daily x3 days,
20 mg daily x3 days, 10 mg daily x3 days.
Referrals:
Marilyn Chaney DO [Family Provider] -
Activity Restrictions/Additional Instructions:
As we discussed, see your therapist at [facility] next week if you are feeling no better by then
Your lab tests are normal
Your EKG is normal
Interventions
Interventions:
*Risk Screen - Suicide Last Done: 05/13/24 14:48
*General Assessment Last Done: 05/13/24 14:48
*Neglect/Abuse Screening Last Done: 05/13/24 14:48
ED- Fall Risk Assessment Last Done: 05/13/24 16:31
*ED COVID-19 Vaccine History Last Done: 05/13/24 14:48
*Nursing Disposition Last Done: 05/13/24 16:31
ED-Psychological Assessment Last Done: 05/13/24 16:31
Discharge Date and Time
Discharge Date/Time: 05/13/24 16:32
Print Language: KAZAKH
[2024-05-13 15:44] LABS: % Basophils 0.4 % (0-2); % Eosinophils 0.2 % (0-6); % Immature Granulocytes 0.8 % (0-0.5); % Monocytes 5.4 % (1.7-9.3); % Neutrophils 74.2 % (42.2-75.2); Absolute Immature Granulocytes 0.1 10^3/uL (0-0.05); Absolute Lymphocytes 1.9 10^3/uL (1.2-3.4); Absolute Monocytes 0.5 10^3/uL (0.1-0.6); Absolute Neutrophils 7.2 10^3/uL (1.4-6.5); Hemoglobin 16.5 g/dL (13.0-18.0); Mean Corp Hgb Conc. 35.9 g/dL (33.0-37.0); Mean Corpuscular Hgb 29.4 pg (27.0-31.0); Mean Corpuscular Volume 81.9 fL (80.0-94.0); Mean Platelet Volume 9.3 fL (7.4-10.4); Nucleated Red Blood Cells % 0 % (-); Platelet Count 242 10^3/uL (130-400); Red Blood Cell Count 5.62 10^6/uL (4.70-6.10); Red Cell Dist. Width 13.2 % (11.5-14.5); White Blood Cell Count 9.8 10^3/uL (4.8-10.8)
[2024-05-13 15:59] LABS: ALT (SGPT) 36 U/L (0-50); AST (SGOT) 42 U/L (17-59); Albumin 5.1 g/dl (3.5-5.0); Alkaline Phosphatase 38 U/L (38-126); Blood Urea Nitrogen 18 mg/dl (9-20); Calcium 10.1 mg/dl (8.4-10.2); Carbon Dioxide 28 mmol/L (22-30); Chloride 98 mmol/L (98-107); Glucose 111 mg/dl (70-99); Potassium 4.1 mmol/L (3.5-5.1); Sodium 139 mmol/L (135-145); Total Bilirubin 0.6 mg/dl (0.2-1.3); Total Protein 7.6 g/dl (6.3-8.2); eGFR > 60.00
[2024-05-13 16:10] LABS: Troponin I < 0.012 ng/ml
[2024-05-13 16:17] VITALS: BP 154/85
[2024-05-13] MEDS: ADDERALL 15 MG PO (16:28)
== END 2024-05-13 16:32 | disposition home or self-care (01) ==
LOC: EMR 14:47
PROVIDERS: Registered Nurse; EMERGENCY PHYSICIAN Emergency Medicine; FAMILY PHYSICIAN Internal Medicine
DX: F41.9 Anxiety disorder, unspecified (principal); Z79.899 Other long term (current) drug therapy
CPT/HCPCS: 99284; 80053; 84484; 85025; 93005

== ENCOUNTER 2024-07-28 13:43 | Emergency (ER) | payer OTHER, SELFPAY ==
[2024-07-28 13:48] VITALS: BP 148/78
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
== END 2024-07-28 14:39 | disposition home or self-care (01) ==
LOC: EMR 13:43
PROVIDERS: EMERGENCY PHYSICIAN Emergency Medicine
DX: F41.9 Anxiety disorder, unspecified (principal); F90.9 Attention-deficit hyperactivity disorder, unspecified type; Z73.3 Stress, not elsewhere classified
CPT/HCPCS: 99283

== ENCOUNTER 2024-07-28 15:59 | Emergency (ER) | payer OTHER, SELFPAY ==
[2024-07-28 16:03] VITALS: BP 156/71
[2024-07-28 17:18] LABS: % Basophils 0.5 % (0-2); % Eosinophils 1.5 % (0-6); % Immature Granulocytes 0.2 % (0-0.5); % Lymphocytes 30.5 % (20.5-51.1); % Monocytes 5.9 % (1.7-9.3); % Neutrophils 61.4 % (42.2-75.2); Absolute Eosinophils 0.1 10^3/uL (0-0.7); Absolute Monocytes 0.4 10^3/uL (0.1-0.6); Hematocrit 47.4 % (39.0-52.0); Hemoglobin 16.3 g/dL (13.0-18.0); Mean Corp Hgb Conc. 34.4 g/dL (33.0-37.0); Mean Corpuscular Hgb 29.7 pg (27.0-31.0); Mean Corpuscular Volume 86.5 fL (80.0-94.0); Mean Platelet Volume 9.6 fL (7.4-10.4); Nucleated Red Blood Cells % 0 % (-); Platelet Count 187 10^3/uL (130-400); Red Blood Cell Count 5.48 10^6/uL (4.70-6.10); Red Cell Dist. Width 13.4 % (11.5-14.5); White Blood Cell Count 6.6 10^3/uL (4.8-10.8)
[2024-07-28 17:30] LABS: ALT (SGPT) 58 U/L (0-50); AST (SGOT) 54 U/L (17-59); Acetaminophen < 10 ug/ml (10-30); Albumin 4.5 g/dl (3.5-5.0); Alkaline Phosphatase 39 U/L (38-126); Blood Urea Nitrogen 15 mg/dl (9-20); Calcium 9.5 mg/dl (8.4-10.2); Carbon Dioxide 33 mmol/L (22-30); Chloride 98 mmol/L (98-107); Glucose 102 mg/dl (70-99); Potassium 3.9 mmol/L (3.5-5.1); Salicylate < 1.0 mg/dl (2.0-20.0); Sodium 138 mmol/L (135-145); Total Bilirubin 0.2 mg/dl (0.2-1.3); Total Protein 6.6 g/dl (6.3-8.2); eGFR > 60.00
[2024-07-28 17:38] LABS: Amphetamines Negative (Negative); Barbiturates Negative (Negative); Benzodiazepines Positive (Negative); Buprenorphine Negative (Negative); Cocaine Negative (Negative); Marijuana Negative (Negative); Methadone Negative (Negative); Methamphetamines Negative (Negative); Opiates Negative (Negative); Phencyclidine Negative (Negative); Tricyclic Antidepressants Positive (Negative)
--- NOTE | 2024-07-28 17:52 | ED.GENMED ---
History of Present Illness
<Radha Tran DIE CAST PATTERNMAKER - Last Filed: 07/28/24 22:08>
General
Chief Complaint: Crisis Evaluation
Source: patient
Exam Limitations: none
Time Seen by Provider: 07/28/24 16:06
Nursing documentation reviewed up to this point in time: agreed with
History of Present Illness
History of Present Illness:
34 yo male seen by me earlier today for anxiety, presents back and his father's request. Pt in waiting room on phone with father, appears calm but overheard him stating he will isaac him for this and he hopes this conversation is being recorded.
Spoke with Crisis Sarah Beth who states pt dad called Crisis requesting 302.
Pt remains calm, taken to room 35 and will medically clear.
Pt denies SI,HI. Is willing to stay
Past History
<Radha Tran, DIE CAST PATTERNMAKER - Last Filed: 07/28/24 22:08>
Past History
ED Past Medical History: Psychiatric (Anxiety and depression.) and Other (Folliculitis)
ED Past Surgical History: Other (Noncontributory)
Patient has exhibited threatening behavior?: No
PSI?: No
Social History
Tobacco: Non-smoker
Alcohol: Occasional
Drug: None
Personal: Single
Living: with family
Employment: Not employed
Family History
Family History: Other (Noncontributory)
Review of Systems
<Radha Tran, DIE CAST PATTERNMAKER - Last Filed: 07/28/24 22:08>
Review of Systems
Allergies reviewed?: Yes
All Other Systems: ROS reviewed and negative except as documented in HPI and ROS
Constitutional: Denies fever or fatigue
Respiratory: Denies trouble breathing
Cardiac: Denies chest pain
ABD/GI: Denies abdominal pain or nausea
: Denies dysuria or difficulty voiding
Musculoskeletal: Reports no symptoms
Skin: Reports no symptoms
Neurological: Reports no symptoms
Psychiatric: Reports anxiety; Denies depression or suicidal
Phy Exam
<Radha Tran DIE CAST PATTERNMAKER - Last Filed: 07/28/24 22:08>
Physical Exam
Physical Exam:
GENERAL: No acute distress. A&Ox3.
CONSTITUTIONAL: Afebrile.
EYES: clear, conjunctivae normal
ENMT: moist mucus membranes, Pharynx nl
RESPIRATORY: Regular respirations, nonlabored, lungs clear.
CARDIOVASCULAR: Regular rate and rhythm, no murmurs, no rubs.
GI: Soft, nontender, normal BS
MUSCULOSKELETAL: Moves with ease. Well perfused.
SKIN: Warm, dry, pink
PSYCH: Normal mood and affect. Well kept, interactive and appropriate
NEUROLOGIC: Awake, alert and oriented. No focal neurological deficits
Course
<Radha Tran, DIE CAST PATTERNMAKER - Last Filed: 07/28/24 22:08>
Orders/Labs/Results
Orders:
Orders
07/28/24 17:05
Acetaminophen Urgent
Complete Blood Count/With Diff Urgent
Comprehensive Metabolic Panel Urgent
Fentanyl, Urine Urgent
Salicylate Urgent
Urine Drug Abuse Screen Urgent
Date Specimen was Collected: 07/28/24
Time Specimen was Collected: 16:57
07/28/24 19:40
Escitalopram Oxalate [Lexapro] 15 mg PO NOW STA
Lorazepam [Ativan] 1 mg PO NOW STA
07/28/24 20:11
PSYCHIATRY CONSULT Urgent
Consulting Provider: Mariah Cuellar
Was physician already notified: Yes
Reason for consult: 302
07/28/24 20:30
Aripiprazole [Abilify] 2 mg PO NOW STA
Abnormal Lab Results
07/28/24
17:05
Carbon Dioxide 33 H mmol/L
(22-30)
Glucose 102 H mg/dl
(70-99)
ALT 58 H U/L
(0-50)
Salicylates < 1.0 L mg/dl
(2.0-20.0)
Acetaminophen < 10 L ug/ml
(10-30)
Ur Tricyclics Screen Positive H
(Negative)
U Benzodiazepines Scrn Positive H
(Negative)
07/28/24 17:05
07/28/24 17:05
Vital Signs
Initial and Last Documented VS:
Initial Vital Signs
Temp Pulse Resp BP Pulse Ox
98.1 F 67 20 156/71 99
07/28/24 16:03 07/28/24 16:03 07/28/24 16:03 07/28/24 16:03 07/28/24 16:03
Last Documented Vital Signs
Temp Pulse Resp BP Pulse Ox
98.1 F 84 18 171/95 98
07/28/24 16:03 07/28/24 18:50 07/28/24 18:50 07/28/24 18:50 07/28/24 18:50
<Balwinder Monaco, DO - Last Filed: 07/28/24 19:35>
Orders/Labs/Results
Orders:
Orders
07/28/24 17:05
Acetaminophen Urgent
Complete Blood Count/With Diff Urgent
Comprehensive Metabolic Panel Urgent
Fentanyl, Urine Urgent
Salicylate Urgent
Urine Drug Abuse Screen Urgent
Date Specimen was Collected: 07/28/24
Time Specimen was Collected: 16:57
07/28/24 19:40
Escitalopram Oxalate [Lexapro] 15 mg PO NOW STA
Lorazepam [Ativan] 1 mg PO NOW STA
07/28/24 20:11
PSYCHIATRY CONSULT Urgent
Consulting Provider: Mraiah Cuellar
Was physician already notified: Yes
Reason for consult: 302
07/28/24 20:30
Aripiprazole [Abilify] 2 mg PO NOW STA
Abnormal Lab Results
07/28/24
17:05
Carbon Dioxide 33 H mmol/L
(22-30)
Glucose 102 H mg/dl
(70-99)
ALT 58 H U/L
(0-50)
Salicylates < 1.0 L mg/dl
(2.0-20.0)
Acetaminophen < 10 L ug/ml
(10-30)
Ur Tricyclics Screen Positive H
(Negative)
U Benzodiazepines Scrn Positive H
(Negative)
07/28/24 17:05
07/28/24 17:05
Vital Signs
Initial and Last Documented VS:
Initial Vital Signs
Temp Pulse Resp BP Pulse Ox
98.1 F 67 20 156/71 99
07/28/24 16:03 07/28/24 16:03 07/28/24 16:03 07/28/24 16:03 07/28/24 16:03
Last Documented Vital Signs
Temp Pulse Resp BP Pulse Ox
98.1 F 84 18 171/95 98
07/28/24 16:03 07/28/24 18:50 07/28/24 18:50 07/28/24 18:50 07/28/24 18:50
<Radha Tran DIE CAST PATTERNMAKER - Last Filed: 07/28/24 22:08>
MDM/Problems Addressed
MDM/Problems Addressed:
34 yo male seen by me earlier today for anxiety, presents back and his father's request. Pt in waiting room on phone with father, appears calm but overheard him stating he will isaac him for this and he hopes this conversation is being recorded.
Spoke with Claritza Burleson who states pt dad called Crisis requesting 302.
Pt remains calm, taken to room 35 and will medically clear.
Pt denies SI,HI. Is willing to stay
5:30 PM:
302 is being upheld and patient is in the room waiting for a telepsych consult. He remains calm
CBC,CMP unremarkable
UDS positive for benzodiazepine, tricyclic's otherwise negative
One on one observation
6:15 PM:
Crisis personnel informed us that his 302 is being upheld
Dr. Monaco filled out the paperwork and will assume care from this point.
<Radha Tran, DIE CAST PATTERNMAKER - Last Filed: 07/28/24 22:08>
*Critical Care Note
Total Time (30-74mins, 75-104mins- exclusive of procedures): Not Applicable
ED Attending Note
<Radha Tran, DIE CAST PATTERNMAKER - Last Filed: 07/28/24 22:08>
-
Portions of this chart may have been created with voice recognition software.� Occasional wrong word or��sound alike� substitutions may have occurred due to the inherent limitations of voice recognition software.
<Balwinder Monaco, DO - Last Filed: 07/28/24 19:35>
ED Attending Note
Patient seen and examined by attending physician: Yes
ED Attending Note:
I reviewed and agree with history and treatment plan my exam revealed 34-year-old male in no acute distress. Currently denying SI or HI. 302 upheld due to episode of franki.
Discharge Plan
Departure
Patient Disposition: Psych Facility
Date of Disposition: 07/28/24
Time of Disposition: 19:21
Patient Status:: Psych
Patient with high blood pressure during this ER visit?: Yes
Condition: Good
Discharge Problem:
Bipolar I disorder with franki
Prescriptions:
No Action
dextroamphetamine-amphetamine [Adderall] 10 mg Tablet
10 mg PO HS
Patient Comments:
at 1300
clonazepam 0.5 mg Tablet
0.5 mg PO BID
dextroamphetamine-amphetamine [Adderall XR] 20 mg Capsule,Extended Release 24hr
20 mg PO DAILY
paroxetine HCl [Paxil] 40 mg Tablet
40 mg PO DAILY
ziprasidone HCl [Geodon] 60 mg Capsule
60 mg PO HS
hydroxyzine HCl 25 MG tablet
50 mg PO TID PRN (Reason: anxiety)
lorazepam [Ativan] 1 mg tablet
1 mg PO BID PRN (Reason: anxiety) Qty: 7 0RF
lorazepam [Ativan] 0.5 mg tablet
0.5 mg PO DAILY PRN (Reason: anxiety) Qty: 10 0RF
ooahdxhnce-qbjvfsbiudgwd-ctou [Fioricet] 50-300-40 mg capsule
1 cap PO Q8H PRN (Reason: Headache) Qty: 14 0RF
lorazepam [Ativan] 0.5 mg tablet
0.5 mg PO BID PRN (Reason: anxiety) Qty: 3 0RF
lorazepam [Ativan] 1 mg tablet
1 mg PO BID PRN (Reason: anxiety) Qty: 7 0RF
doxycycline hyclate 100 mg capsule
100 mg PO BID Qty: 13 0RF
prednisone 10 mg Tablet
See Rx Instructions .ROUTE .COMPLEX Qty: 45 0RF
Rx Instructions:
Take By Mouth:
50 mg daily x3 days, 40 mg daily x3 days,
30 mg daily x3 days, 20 mg daily x3 days,
10 mg daily x3 days
prednisone 10 mg Tablet
See Rx Instructions .ROUTE .COMPLEX Qty: 30 0RF
Rx Instructions:
Take By Mouth:
40 mg daily x3 days, 30 mg daily x3 days,
20 mg daily x3 days, 10 mg daily x3 days.
Referrals:
Marilyn Chaney DO [Family Provider] -
Interventions
Interventions:
*Risk Screen - Suicide Last Done: 07/28/24 16:00
*General Assessment Last Done: 07/28/24 16:03
*Neglect/Abuse Screening Last Done: 07/28/24 16:06
ED- Fall Risk Assessment Last Done: 07/28/24 17:53
ED-Psychological Assessment Last Done: 07/28/24 17:53
Discharge Date and Time
Print Language: TURKMEN
[2024-07-28 17:59] LABS: Fentanyl, Urine Negative (Negative)
--- NOTE | 2024-07-28 18:15 | EDRN ---
Pt is moving at this time from room #35 to Crisis 1. 302 upheld by Psychiatrist. Pt will be one to one observation.
[2024-07-28 18:50] VITALS: BP 171/95
[2024-07-28] MEDS: ATIVAN 1 MG PO (19:59)
[2024-07-28] MEDS: LEXAPRO 15 MG PO (19:59)
[2024-07-28] MEDS: ABILIFY 2 MG PO (20:35)
[2024-07-29 07:45] VITALS: BP 152/80
--- NOTE | 2024-07-29 07:46 | EDRN ---
pt wants to know when psychiatrist will be in to see pt. as he states he's been waiting a while. Explained to pt that it's only just past 7am and they are not in hospital yet but will be to see them supposedly this morning. Pt. wanted to know if
they had 'tapes' of him doing the stuff the 302 stated and asking when he could leave. Explained to pt that currently he can't leave due to 302.
[2024-07-29] MEDS: ATIVAN 1 MG PO (09:16)
--- NOTE | 2024-07-29 09:27 | ED.CRISIS ---
ED Crisis Note
ED Crisis Note
Subjective:
The patient is intermittently agitated
Objective:
He did receive Ativan last night
Assessment/Plan:
Will give a dose of Ativan now and I just spoke to crisis and they are currently bed searching him. I also briefly discussed with Dr. Block as there apparently is a consult for psych here as well.
[2024-07-29] MEDS: ABILIFY 10 MG PO (10:47)
--- NOTE | 2024-07-29 10:52 | EDRN ---
pt. refusing depakene at this time. states 'i knows what works for my body and it's not that.' Pt. educated that this the recommendation of psych and the MD but still refusing.
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
== END 2024-07-29 18:57 ==
LOC: EMR 15:59
PROVIDERS: Registered Nurse; EMERGENCY PHYSICIAN Emergency Medicine; FAMILY PHYSICIAN Internal Medicine; OTHER PHYSICIAN Psychiatry & Neurology Psychiatry
DX: F31.9 Bipolar disorder, unspecified (principal); F90.9 Attention-deficit hyperactivity disorder, unspecified type
CPT/HCPCS: 99285; 80053; 80143; 80179; 80306; 80307; 85025

== ENCOUNTER 2025-01-24 21:49 | Emergency (ER) | payer MEDICARE, SELFPAY ==
[2025-01-24 22:00] VITALS: BP 138/94
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
[2025-01-25] MEDS: ATIVAN 0.5 MG PO (01:44)
[2025-01-25 02:44] LABS: Hematocrit 46.5 % (39.0-52.0); Hemoglobin 16.2 g/dL (13.0-18.0); Mean Corp Hgb Conc. 34.8 g/dL (33.0-37.0); Mean Corpuscular Volume 87.1 fL (80.0-94.0); Nucleated Red Blood Cells % 0 % (-); Platelet Count 171 10^3/uL (130-400); Red Cell Dist. Width 13.9 % (11.5-14.5)
[2025-01-25 03:08] LABS: ALT (SGPT) 36 U/L (0-50); AST (SGOT) 51 U/L (17-59); Acetaminophen < 10 ug/ml (10-30); Albumin 4.9 g/dl (3.5-5.0); Alkaline Phosphatase 36 U/L (38-126); Blood Urea Nitrogen 20 mg/dl (9-20); Calcium 9.9 mg/dl (8.4-10.2); Carbon Dioxide 31 mmol/L (22-30); Chloride 103 mmol/L (98-107); Glucose 103 mg/dl (70-99); Potassium 4.0 mmol/L (3.5-5.1); Salicylate < 1.0 mg/dl (2.0-20.0); Sodium 140 mmol/L (135-145); Total Protein 7.3 g/dl (6.3-8.2); eGFR > 60.00
[2025-01-25] MEDS: ATIVAN 1 MG PO (11:20)
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
== END 2025-01-25 16:25 ==
LOC: EMR 21:49
PROVIDERS: CONSULT PHYSICIAN Psychiatry & Neurology Psychiatry; EMERGENCY PHYSICIAN Emergency Medicine; FAMILY PHYSICIAN Internal Medicine
DX: F41.9 Anxiety disorder, unspecified (principal); R45.851 Suicidal ideations; R45.1 Restlessness and agitation; R45.4 Irritability and anger; F39 Unspecified mood [affective] disorder; F32.A Depression, unspecified; F30.2 Manic episode, severe with psychotic symptoms; F31.9 Bipolar disorder, unspecified; F90.9 Attention-deficit hyperactivity disorder, unspecified type; F12.90 Cannabis use, unspecified, uncomplicated; Z91.148 Patient's other noncompliance with medication regimen for other reason
CPT/HCPCS: 99285; 80053; 80143; 80179; 80306; 80307; 82077; 85025